=== PATIENT | male | born 1960 | race African-American/Black ===

== ENCOUNTER 2019-03-02 10:43 | Observation (INO) | payer MEDICAID, OTHER ==
[2019-03-02] MEDS ORDERED: IPRATROPIUM/ALBUTEROL 3 ML NEB INH STA (11:25)
--- NOTE | 2019-03-02 11:31 | ED Physician Documentation ---
History of Present Illness - Stated complaint Stated Complaint: SOA - Chief complaint Chief Complaint: Resp - History obtained from History obtained from: Patient, Family - History of Present Illness Timing: How many weeks ago (several) Pain level max: 0 Pain level now: 0 - Additonal information Additional information: 58-year-old male, has not seen a doctor in approximately 30 to 40 years. He states that he has been feeling short of breath for the last 3 weeks, worse with exertion and better with rest. No chest pain. Does not smoke. Has no medical problems that he is aware of. Does not take any medications. Patient states that he can only walk approximately 10 to 15 feet before he has to stop and is out of breath. Cannot make it up a flight of stairs without stopping. Review of Systems Ten Systems: 10 systems reviewed and negative Constitutional: denies: Fever, Chills Ears: denies: Ear pain Nose: denies: Rhinorrhea / runny nose, Congestion Respiratory: reports: Dyspnea. denies: Cough, Wheezing GI: denies: Nausea, Vomiting, Diarrhea Skin: denies: Rash Musculoskeletal: denies: Neck pain, Back pain Neurologic: denies: Headache PD PAST MEDICAL HISTORY - Past Medical History Past Medical History: No - Past Surgical History Past Surgical History: No - Allergies Allergies/Adverse Reactions: Allergies Allergy/AdvReac Type Severity Reaction Status Date / Time No Known Drug Allergies Allergy Verified 03/02/19 10:50 - Living Situation Living Situation: reports: With family Living Arrangement: reports: At home - Social History Does the pt smoke?: No Does the pt have substance abuse?: No - Family History Family history: reports: Non contributory PD ED PE NORMAL - Vitals Vital signs reviewed: Yes - General General: Alert and oriented X 3, No acute distress - HEENT HEENT: Moist mucous membranes - Neck Neck: Supple, no meningeal sign - Cardiac Cardiac: RRR - Respiratory Respiratory: Other (Rales bilaterally) - Abdomen Abdomen: Soft, Non tender, Non distended - Derm Derm: Warm and dry - Extremities Extremities: Other (2+ pitting edema bilateral lower extremity) - Neuro Neuro: Alert and oriented X 3 Results - Vitals Vitals: Vital Signs - 24 hr 03/02/19 03/02/19 10:47 11:36 Temperature 35 C L Heart Rate 114 H 102 H Respiratory 18 14 Rate Blood Pressure 149/128 H O2 Saturation 95 Oxygen O2 Source Room air - EKG (time done) 1054 Rate: Rate (enter#) (112) Rhythm: Sinus tachycardia [place]: Normal Intervals: Normal [place] QRS: Normal Ischemia: Non specific changes - Labs Labs: Laboratory Tests 03/02/19 03/02/19 03/02/19 11:39 11:39 11:39 WBC 5.2 RBC 5.12 Hgb 12.0 L Hct 38.5 L MCV 75.2 L MCH 23.4 L MCHC 31.2 L RDW 15.6 H Plt Count 308 MPV 9.4 Neut # (Auto) 3.5 Lymph # (Auto) 1.2 L [place] # (Auto) 0.3 Eos # (Auto) 0.1 Baso # (Auto) 0.0 Absolute Nucleated RBC 0.00 Nucleated RBC % 0.0 Sodium 135 Potassium 3.7 Chloride 101 Carbon Dioxide 25 Anion Gap 9.0 BUN 9 Creatinine 0.8 Estimated GFR (MDRD) 121 Glucose 209 H Glycated Hemoglobin Estim Average Glucose Calcium 8.8 Total Bilirubin 1.7 H AST 47 H ALT 57 Alkaline Phosphatase 89 Troponin I High Sens 58.1 H* B-Natriuretic Peptide Total Protein 6.6 L Albumin 3.6 Globulin 3.0 Albumin/Globulin Ratio 1.2 Lipase 22 03/02/19 03/02/19 11:39 11:39 WBC RBC Hgb Hct MCV MCH MCHC RDW Plt Count MPV Neut # (Auto) Lymph # (Auto) [place] # (Auto) Eos # (Auto) Baso # (Auto) Absolute Nucleated RBC Nucleated RBC % Sodium Potassium Chloride Carbon Dioxide Anion Gap BUN Creatinine Estimated GFR (MDRD) Glucose Glycated Hemoglobin 8.8 H Estim Average Glucose 206 H Calcium Total Bilirubin AST ALT Alkaline Phosphatase Troponin I High Sens B-Natriuretic Peptide 1477 H Total Protein Albumin Globulin Albumin/Globulin Ratio Lipase - Rads (name of study) CXR Radiology: Prelim report reviewed, EMP read contemporaneously, See rad report (. Heterogeneous mid and lower lung opacities could represent atypical infection. Recommend follow-up to resolution. 2. Possible airways disease ) PD MEDICAL DECISION MAKING - ED course Complexity details: reviewed results, re-evaluated patient, considered differential, d/w patient, d/w family, d/w mainframe consultant ED course: 58-year-old male presents to the emergency department with dyspnea for the past several weeks, slowly increasing. Now unable to walk more than approximately 10 to 15 feet without stopping because he is short of breath. Appears to have new onset congestive heart failure. Given Lasix here. Also appears to have a new onset diabetes. As patient is having significant dyspnea, will admit for diuresis and further evaluation. He does not have a primary care doctor. Discussed the case with Dr. Barba, hospitalist who accepts. This document was made in part using voice recognition software. While efforts are made to proofread this document, sound alike and grammatical errors may occur. Departure - Departure Disposition: [facility] DC/Xfer Clinical Impression: New onset of congestive heart failure, New onset type 2 diabetes mellitus Pulmonary edema Qualifiers: Chronicity: acute Qualified Code(s): J81.0 - Acute pulmonary edema Condition: Stable Discharge Date/Time: 03/02/19 13:42
--- NOTE | 2019-03-02 11:34 | XRAY Report ---
Reason: SOA/tachycardia Procedure Date: 03/02/2019 Accession Number: [id number] / [id number] Procedure: XR - Chest 2 View X-Ray CPT Code: 58730 Final Report FULL RESULT: EXAM: CHEST RADIOGRAPHY EXAM DATE: 03/02/2019 11:08 AM. CLINICAL HISTORY: SOA/tachycardia. COMPARISON: None. TECHNIQUE: 2 views. FINDINGS: Lungs/Pleura: Increased lung markings. Heterogeneous bilateral mid and lower lung opacities. Mediastinum: Heart and mediastinal contours are unremarkable. Other: None. IMPRESSION: 1. Heterogeneous mid and lower lung opacities could represent atypical infection. Recommend follow-up to resolution. 2. Possible airways disease RADIA
[2019-03-02 11:44] LABS: BASOPHILS % (AUTO) 0.8 %; EOSINOPHILS # (AUTO) 0.1 10^3/uL (0.0-0.7); EOSINOPHILS % (AUTO) 1.7 %; LYMPHOCYTES # (AUTO) 1.2 10^3/uL (1.5-3.5); LYMPHOCYTES % (AUTO) 23.9 %; MEAN CORPUSCULAR HEMOGLOBIN 23.4 pg (27.0-31.0); MEAN CORPUSCULAR HGB CONC 31.2 g/dL (32.0-36.0); MEAN CORPUSCULAR VOLUME 75.2 fL (80.0-94.0); MEAN PLATELET VOLUME 9.4 fL (7.4-11.4); MONOCYTES # (AUTO) 0.3 10^3/uL (0.0-1.0); NEUTROPHILS # (AUTO) 3.5 10^3/uL (1.5-6.6); NEUTROPHILS % (AUTO) 67.4 %; PLT - PLATELET COUNT 308 10^3/uL (130-450); RED BLOOD COUNT 5.12 10^6/uL (4.70-6.10); RED CELL DISTRIBUTION WIDTH 15.6 % (12.0-15.0); WHITE BLOOD COUNT 5.2 x10^3/uL (4.8-10.8)
[2019-03-02 11:58] LABS: ALBUMIN 3.6 g/dL (3.2-5.5); ALBUMIN/GLOBULIN RATIO 1.2 (1.0-2.2); BILIRUBIN,TOTAL 1.7 mg/dL (0.2-1.0); CALCIUM 8.8 mg/dL (8.5-10.3); CREATININE 0.8 mg/dL (0.6-1.2); TOTAL PROTEIN 6.6 g/dL (6.7-8.2)
[2019-03-02] MEDS ORDERED: FUROSEMIDE 40 MG/4 ML VIAL IVP STA (12:08)
[2019-03-02 12:31] LABS: HB2 TOTAL 12.2 g/dL; HEMOGLOBIN A1C 0.88 g/dL; HEMOGLOBIN A1C % 8.8 % (4.6-6.2)
[2019-03-02] MEDS ORDERED: ACETAMINOPHEN 325 MG TABLET PO PRN (13:00)
--- NOTE | 2019-03-02 14:04 | HISTORY & PHYSICAL EXAMINATION ---
Chief Complaint - Chief Complaint Chief Complaint: Shortness of breath History of Present Illness - Admitted From Admitted From:: Home - History Obtained From Records Reviewed: Yes History obtained from: Patient, ER Physician - History of Present Illness HPI Comment/Other: This is a 58-year-old male with no known past medical history who has not seen a physician in approximately 30 years who presents complaining of worsening shortness of breath with exertion for the past 3 weeks.He states his breathing has progressively declined and he is now barely able to ambulate to his bathroom. He also reports orthopnea that he has had difficulty sleeping at night. He does not recall having lower extremity swelling. He reports no chest pain but does endorse palpitations and a cough. He has had no fever, abdominal pain, nausea, vomiting. He does not smoke and only drinks alcohol rarely. He does have a history of drug use and recently used cocaine about 1 week ago. He reports using approximately every month. Report reports a remote history of meth use. He also smokes marijuana but denies the use of heroin. He reports a family history of hypertension, diabetes, and congestive heart failure. He came to the hospital today because his sister kept on pushing him to seek medical attention.He does not have a primary care physician. In the emergency department, he was found to be tachycardic, tachypneic but he was not hypoxic. Chest x-ray revealed bilateral opacities.He was found to have an A1c of 8.8%, troponin of 58.1, and a BNP of 1477. Given these findings, medicine was consulted for admission. History - Past Medical History Cardiovascular: reports: None Respiratory: reports: None Neuro: reports: None Endocrine/Autoimmune: reports: None - Family & Social History Family History Comment/Other: Reports family history of hypertension, diabetes. His mother from congestive heart failure. Living arrangement: At home Living Situation: With family Social History Notes: He is currently not employed but was previous he working in [employer]. He does not smoke. Reports social use of alcohol. He does use cocaine with most recent use being 1 week ago. He also uses marijuana. Reports a remote history of meth use. Denies heroin use. - POLST Patient has POLST: No Meds/Allgy - Home Medications Home Medications: Ambulatory Orders Medication Instructions Recorded Confirmed No Known Home Medications 03/02/19 03/02/19 - Allergies Allergies/Adverse Reactions: Allergies Allergy/AdvReac Type Severity Reaction Status Date / Time No Known Drug Allergies Allergy Verified 03/02/19 10:50 Review of Systems - Constitutional Constitutional: denies: Fatigue, Fever, Chills, Weakness, Poor appetite - Cardiovascular Cariovascular: reports: Palpitations, Exertional dyspnea, Decr. exercise to lerance. denies: Chest pain, Edema - Respiratory Respiratory: reports: Cough, Orthopnea, SOB with exertion. denies: SOB at rest - Gastrointestinal Gastrointestinal: denies: Abdominal pain, Abdominal distention, Nausea, Vomiting - Genitourinary Genitourinary: denies: Dysuria, Frequency, Urgency - Musculoskeletal Musculoskeletal: denies: Muscle weakness - Neurological Neurological: denies: General weakness, Focal weakness, Numbness - All Other Systems All Other Systems: reports: Reviewed and negative Prior Level of Functionality: Independent with ADL's. Exam - Vital Signs Reviewed Vital Signs: Yes Vital Signs: Vital Signs x48h Temp Pulse Resp BP Pulse Ox 03/02/19 11:36 102 H 14 03/02/19 10:47 35 C L 114 H 18 149/128 H 95 - Physical Exam General Appearance: positive: No acute distress, Alert Eyes Bilateral: positive: Normal inspection ENT: positive: ENT inspection nml Neck: positive: Nml inspection Respiratory: positive: Rales, Other (Tachypneic with diminished breath sounds. No wheezes or rhonchi.) Cardiovascular: positive: No murmur, Tachycardia. negative: Systolic murmur, Diastolic murmur Abdomen: positive: Non-tender, No distention. negative: Tenderness, Guarding, Rebound, Hepatomegaly, Splenomegaly Skin: positive: No rash, Warm, Dry Extremities: positive: Full ROM, Pedal edema (+1 pitting edema in bilateral lower extremities.) Neurologic/Psychiatric: positive: Oriented x3, Motor nml. negative: Disoriented to person, Disoriented to place, Disoriented to time, Weakness Conclusion/Plan - Problem List (1) Pulmonary edema Conclusion/Plan: His presentation given his x-ray findings, elevated BNP are concerning for new onset heart failure. He does have risk factors including diabetes for possible heart disease. He may have also had poorly controlled hypertension leading to heart failure. His drug use may also cause heart failure. We will obtain an echocardiogram. We will treat him with IV Lasix. Recheck a BNP in the morning.If he does have new onset heart failure, he will need appropriate goal- directed therapy and outpatient cardiology follow-up. Qualifiers: Chronicity: acute Qualified Code(s): J81.0 - Acute pulmonary edema (2) Elevated troponin Conclusion/Plan: He does not have chest pain and his EKG does not show acute ischemia. Suspect his elevated troponin is likely secondary to heart failure. We will continue to trend troponin. (3) Hypertension Conclusion/Plan: His blood pressure is elevated and he likely has hypertension. We will start him on antihypertensives. If he does have heart failure, will start carvedilol and lisinopril. (4) New onset type 2 diabetes mellitus Conclusion/Plan: This is a new diagnosis for him and his A1c is 8.8.%. Will start him on carb controlled diet and sliding scale. Will add Lantus if required while inpatient. Likely discharge on Metformin. - Lab Results Fish Bones: 03/02/19 11:39 03/02/19 11:39 - Diagnostic Imaging Results Diagnostic Imaging Results: positive: Final report reviewed, Read independently Diagnostic Imaging Results Comments: His x-ray is suggestive of pulmonary vascular congestion. Less likely pneumonia. - EKG Results EKG Interpreted Independently: Yes EKG Findings: His EKG reveals sinus tachycardia with nonspecific ST segment changes. No obvious signs of ischemia. QTC is prolonged at 490. Core Measures - Anticipated LOS I expect patient to be DC'd or transferred within 96 hours.: Yes - Issues Hospital Issues and Management Plan: Pulmonary edema and exertional dyspnea concerning for new onset heart failure. Will obtain echocardiogram and diurese him with IV Lasix. - DVT/VTE - Prophylaxis VTE/DVT Device ordered at admit?: Yes VTE/DVT Prophylaxis med ordered at admit?: Yes
[2019-03-02] MEDS: INSULIN ASPART 300 UNIT/3 ML PEN SUBQ SCH ×2 (17:21→21:45)
[2019-03-02] MEDS: FUROSEMIDE 40 MG/4 ML VIAL IVP SCH (17:22)
[2019-03-02] MEDS: SODIUM CHLORIDE FLUSH 0.9% 10 ML SYRINGE IVP SCH ×2 (17:22→23:58)
[2019-03-02] MEDS: carvediloL 3.125 MG TABLET PO SCH (21:46)
[2019-03-02] MEDS: HEPARIN 5,000 UNIT/ML VIAL SUBQ SCH (21:47)
[2019-03-03] MEDS: SODIUM CHLORIDE FLUSH 0.9% 10 ML SYRINGE IVP PRN ×2 (05:24→14:42)
[2019-03-03] MEDS: FUROSEMIDE 40 MG/4 ML VIAL IVP SCH ×2 (05:24→14:42)
[2019-03-03 05:26] LABS: BASOPHILS % (AUTO) 0.9 %; EOSINOPHILS # (AUTO) 0.2 10^3/uL (0.0-0.7); EOSINOPHILS % (AUTO) 3.8 %; HGB - HEMOGLOBIN 11.8 g/dL (14.0-18.0); LYMPHOCYTES # (AUTO) 1.7 10^3/uL (1.5-3.5); LYMPHOCYTES % (AUTO) 36.4 %; MEAN CORPUSCULAR HEMOGLOBIN 23.8 pg (27.0-31.0); MEAN CORPUSCULAR HGB CONC 31.7 g/dL (32.0-36.0); MEAN PLATELET VOLUME 9.6 fL (7.4-11.4); MONOCYTES # (AUTO) 0.4 10^3/uL (0.0-1.0); MONOCYTES % (AUTO) 8.4 %; NEUTROPHILS # (AUTO) 2.3 10^3/uL (1.5-6.6); NEUTROPHILS % (AUTO) 50.5 %; PLT - PLATELET COUNT 309 10^3/uL (130-450); RED BLOOD COUNT 4.96 10^6/uL (4.70-6.10); RED CELL DISTRIBUTION WIDTH 15.5 % (12.0-15.0); WHITE BLOOD COUNT 4.5 x10^3/uL (4.8-10.8)
[2019-03-03 05:46] LABS: BUN - BLOOD UREA NITROGEN 11 mg/dL (6-20); CALCIUM 8.5 mg/dL (8.5-10.3); CARBON DIOXIDE - CO2 29 mmol/L (21-32); CHLORIDE 99 mmol/L (101-111); CHOL/HDL RATIO 4.5 (<5.0); CHOLESTEROL 136 mg/dL; CREATININE 0.8 mg/dL (0.6-1.2); GFR - MDRD 121 (>89); GLUCOSE 135 mg/dL (70-100); HDL CHOLESTEROL 30 mg/dL; LDL CHOLESTEROL,CALCULATED 94 mg/dL; LDL/HDL RATIO 3.1 (<3.6); SODIUM 138 mmol/L (135-145); VLDL CHOLESTEROL 12 mg/dL
[2019-03-03] MEDS: INSULIN ASPART 300 UNIT/3 ML PEN SUBQ SCH ×4 (08:02→20:34)
[2019-03-03] MEDS ORDERED: POTASSIUM CHLORIDE 20 MEQ TABLET PO ONE (08:21)
[2019-03-03] MEDS ORDERED: LISINOPRIL 5 MG TABLET PO SCH (09:00)
[2019-03-03] MEDS ORDERED: SPIRONOLACTONE 25 MG TABLET PO SCH (09:00)
[2019-03-03] MEDS: metFORMIN 500 MG TABLET PO SCH ×2 (10:10→16:55)
[2019-03-03] MEDS: ASPIRIN EC 81 MG TABLET PO SCH (10:10)
[2019-03-03] MEDS: HEPARIN 5,000 UNIT/ML VIAL SUBQ SCH ×2 (10:11→20:36)
[2019-03-03] MEDS: SODIUM CHLORIDE FLUSH 0.9% 10 ML SYRINGE IVP SCH ×3 (10:11→23:58)
[2019-03-03] MEDS: carvediloL 3.125 MG TABLET PO SCH ×2 (10:11→20:40)
--- NOTE | 2019-03-03 14:18 | Ultrasound Report ---
Reason: L great toe is black, eval for ischemia/PVD Procedure Date: 03/03/2019 Accession Number: [id number] / [id number] Procedure: US - Duplex Lwr Ext Arterial LT CPT Code: Final Report FULL RESULT: EXAM: LEFT LOWER EXTREMITY ARTERIAL DOPPLER ULTRASOUND EXAM DATE: 03/03/2019 01:53 PM. CLINICAL HISTORY: Left great toe is black, evaluate for ischemia/PVD. COMPARISON: None. TECHNIQUE: Real-time sonographic vascular imaging was performed by the office services coordinator, utilizing color-flow, Doppler flow, and spectral analysis. Multiple software support representative static images were saved for review. FINDINGS: Normal triphasic waveforms are seen throughout the patent left lower extremity arterial vasculature with sampled stations and respective velocities in centimeters per second as described below. Left Lower Extremity: PLUG DRILL OPERATOR: PSV 51 cm/sec. PSFA: PSV 48 cm/sec. MSFA: PSV 59 cm/sec. DSFA: PSV 54 cm/sec. PFA: PSV 40 cm/sec. POP: PSV 48 cm/sec. ERIK: PSV 76 cm/sec. HOT DIP PLATING SUPERVISOR: PSV 83 cm/sec. CHINTAN: PSV 43 cm/sec. DPA: PSV 71 cm/sec. IMPRESSION: Normal left lower extremity arteries as described. Recommendation: Vascular etiology of black toes in the setting of normal lower extremity vascular system is most commonly associated with thromboembolic disease. RADIA
--- NOTE | 2019-03-03 15:32 | PROVIDER PROGRESS NOTE ---
Assessment/Plan - Problem List (1) New onset of congestive heart failure Assessment/Plan: The Echo showed LVEF 20-30% with global hypokainesis and moderate pulm HTN. He is in (-)2L fluid balance today and less orthopneic, he reported. Continue Coreg and Lisinopril, started yesterday. Continue iv diuretic for 1 more day, change to po Lasix tomorrow. Will also start Aldactone now. Will add a daily baby ASA, for possible ischemic cardiomyopathy. Given his young age, and risks for vascular disease, will try to get transferred for a cor angio. The angio procedure was explained to the patient, he is agree able. (2) New onset type 2 diabetes mellitus Assessment/Plan: He reports that DM runs in the family. Will change to a cc diet, low sodium. continue ss Insulin coverage. Start metformin. Will request Land Surveying Survey Worker Consult, for DM and CHF teaching. (3) Hypertension Assessment/Plan: He may have had lonstanding HTN that was uncontrolled, leading to cardiomyopathy. The new CHF meds are now controlling his BP. (4) Hypokalemia Assessment/Plan: Likely related to diuresis. Replace orally. Follow BMP and Mg daily. (5) Black toe Assessment/Plan: The RN reported this today. He says it turned black about 1 week ago, was not painful, he cut the nail down so it wouldn't snag. Will assess for ischemia with Duplex Doppler of L leg. Add daily anti-platelet agent. - Current Meds Current Meds: Current Medications Generic Name Dose Route Start Last Admin Trade Name Yogesh PRN Reason Stop Dose Admin Aspirin 81 mg 03/03/19 09:00 03/03/19 10:10 Ecotrin PO 81 mg DAILY SHANNAN Administration Carvedilol 6.25 mg 03/02/19 21:00 03/03/19 10:11 Coreg PO 6.25 mg BID SHANNAN Administration Furosemide 40 mg 03/02/19 18:00 03/03/19 14:42 Lasix Inj 40 Mg Vial IVP 40 mg BIDDIURETIC SHANNAN Administration Heparin Sodium (Porcine) 5,000 unit 03/02/19 21:00 03/03/19 10:11 SUBQ 5,000 unit BID SHANNAN Administration Insulin Aspart 1 - 9 unit 03/02/19 17:00 03/03/19 12:34 Novolog SUBQ 5 unit 0800,1200,1700,2100 SHANNAN Administration Protocol Lisinopril 10 mg 03/03/19 09:00 03/03/19 10:09 Zestril PO 10 mg DAILY SHANNAN Administration Metformin HCl 500 mg 03/03/19 09:00 03/03/19 10:10 Glucophage PO 500 mg BIDWM SHANNAN Administration Sodium Chloride 10 ml 03/02/19 13:00 03/03/19 14:42 Normal Saline Flush 0.9% IVP 10 ml PRN PRN Administration NEEDED PER PROVIDER ORDERS Sodium Chloride 10 ml 03/02/19 17:00 03/03/19 10:11 Normal Saline Flush 0.9% IVP 10 ml 0100,0900,1700 SHANNAN Administration Spironolactone 25 mg 03/03/19 09:00 03/03/19 10:09 Aldactone PO 25 mg DAILY SHANNAN Administration - Lab Result Fish Bone Diagrams: 03/03/19 05:02 03/03/19 05:02 - Additional Planning My Orders: My Active Orders 03/03/19 08:18 Nutrition Consult [CONS] Routine 03/03/19 09:00 Aspirin EC [Ecotrin] 81 mg PO DAILY Spironolactone [Aldactone] 25 mg PO DAILY metFORMIN [Glucophage] 500 mg PO BIDWM 03/03/19 Dinner Carb-controlled Diet [DIET] 03/04/19 05:00 FOLATE [IAI] DAILYLAB IRON TIBC PANEL [CHEM] DAILYLAB VITAMIN B12 [IAI] DAILYLAB Subjective - Subjective Patient Reports: Feeling Better, Resting Comfortably Nursing Reports: Other (Has questions about DM and CHF) Objective Vital Signs: Vital Signs - 24 hr 03/02/19 03/02/19 03/02/19 16:44 17:00 21:00 Temperature 35.0 C L 36.8 C 36.9 C Heart Rate 112 H Heart Rate [ 105 H 119 H Brachial] Heart Rate [ Monitoring electrodes] Respiratory 20 20 22 Rate Blood Pressure 161/105 H 151/90 H [Right Brachial artery] O2 Saturation 97 98 96 03/02/19 03/02/19 03/03/19 21:43 23:59 01:19 Temperature 36.8 C Heart Rate Heart Rate [ 100 99 Brachial] Heart Rate [ 107 H Monitoring electrodes] Respiratory 16 Rate Blood Pressure 151/84 H 134/101 H 132/92 H [Right Brachial artery] O2 Saturation 97 03/03/19 03/03/19 03/03/19 02:52 07:57 13:00 Temperature 37.0 C 36.8 C 36.8 C Heart Rate Heart Rate [ 97 Brachial] Heart Rate [ 97 101 H Monitoring electrodes] Respiratory 16 16 16 Rate Blood Pressure 128/82 H 144/97 H 108/65 [Right Brachial artery] O2 Saturation 94 97 96 Oxygen O2 Source Room air I&O (Last 24 Hrs): Intake and Output Totals x24h 03/01/19 03/02/19 03/03/19 23:59 23:59 23:59 Intake Total 710 1680 Output Total 2515 1350 Balance -1805 330 General: Alert, Oriented x3 HEENT: Mucous membr. moist/pink Neck: Supple Neuro: Non Focal Cardiovascular: Regular rate, No murmurs Respiratory: No respiratory distress, Rales, Other (L base rales) Abdomen: Normal bowel sounds, Soft Extremities: Other (Trace ankle edema, L toe nailbed is black) - Results Results: Laboratory Results WBC 4.5 x10^3/uL (4.8-10.8) L 03/03/19 05:02 RBC 4.96 10^6/uL (4.70-6.10) 03/03/19 05:02 Hgb 11.8 g/dL (14.0-18.0) L 03/03/19 05:02 Hct 37.2 % (42.0-52.0) L 03/03/19 05:02 MCV 75.0 fL (80.0-94.0) L 03/03/19 05:02 MCH 23.8 pg (27.0-31.0) L 03/03/19 05:02 MCHC 31.7 g/dL (32.0-36.0) L 03/03/19 05:02 RDW 15.5 % (12.0-15.0) H 03/03/19 05:02 Plt Count 309 10^3/uL (130-450) 03/03/19 05:02 MPV 9.6 fL (7.4-11.4) 03/03/19 05:02 Neut # (Auto) 2.3 10^3/uL (1.5-6.6) 03/03/19 05:02 Lymph # (Auto) 1.7 10^3/uL (1.5-3.5) 03/03/19 05:02 [place] # (Auto) 0.4 10^3/uL (0.0-1.0) 03/03/19 05:02 Eos # (Auto) 0.2 10^3/uL (0.0-0.7) 03/03/19 05:02 Baso # (Auto) 0.0 10^3/uL (0.0-0.1) 03/03/19 05:02 Absolute Nucleated RBC 0.00 x10^3/uL 03/03/19 05:02 Nucleated RBC % 0.0 /100WBC 03/03/19 05:02 Sodium 138 mmol/L (135-145) 03/03/19 05:02 Potassium 3.3 mmol/L (3.5-5.0) L 03/03/19 05:02 Chloride 99 mmol/L (101-111) L 03/03/19 05:02 Carbon Dioxide 29 mmol/L (21-32) 03/03/19 05:02 Anion Gap 10.0 (6-13) 03/03/19 05:02 BUN 11 mg/dL (6-20) 03/03/19 05:02 Creatinine 0.8 mg/dL (0.6-1.2) 03/03/19 05:02 Estimated GFR (MDRD) 121 (>89) 03/03/19 05:02 Glucose 135 mg/dL (70-100) H 03/03/19 05:02 POC Whole Bld Glucose 274 mg/dL (70 - 100) H 03/03/19 11:13 Glycated Hemoglobin 8.8 % (4.6-6.2) H 03/02/19 11:39 Estim Average Glucose 206 (70-100) H 03/02/19 11:39 Calcium 8.5 mg/dL (8.5-10.3) 03/03/19 05:02 Total Bilirubin 1.7 mg/dL (0.2-1.0) H 03/02/19 11:39 AST 47 IU/L (10-42) H 03/02/19 11:39 ALT 57 IU/L (10-60) 03/02/19 11:39 Alkaline Phosphatase 89 IU/L (42-121) 03/02/19 11:39 Troponin I High Sens 56.0 ng/L (2.3-19.7) H* 03/02/19 13:25 B-Natriuretic Peptide 1284 pg/mL (5-100) H 03/03/19 05:02 Total Protein 6.6 g/dL (6.7-8.2) L 03/02/19 11:39 Albumin 3.6 g/dL (3.2-5.5) 03/02/19 11:39 Globulin 3.0 g/dL (2.1-4.2) 03/02/19 11:39 Albumin/Globulin Ratio 1.2 (1.0-2.2) 03/02/19 11:39 Triglycerides 62 mg/dL (-149) 03/03/19 05:02 Cholesterol 136 mg/dL (-199) 03/03/19 05:02 LDL Cholesterol, Calc 94 mg/dL (-129) 03/03/19 05:02 VLDL Cholesterol 12 mg/dL 03/03/19 05:02 HDL Cholesterol 30 mg/dL (60-) L 03/03/19 05:02 LDL/HDL Ratio 3.1 (<3.6) 03/03/19 05:02 Cholesterol/HDL Ratio 4.5 (<5.0) 03/03/19 05:02 Lipase 22 U/L (22-51) 03/02/19 11:39
[2019-03-04 05:21] LABS: BASOPHILS % (AUTO) 0.7 %; EOSINOPHILS # (AUTO) 0.2 10^3/uL (0.0-0.7); EOSINOPHILS % (AUTO) 5.2 %; HGB - HEMOGLOBIN 11.9 g/dL (14.0-18.0); LYMPHOCYTES # (AUTO) 1.9 10^3/uL (1.5-3.5); LYMPHOCYTES % (AUTO) 43.5 %; MEAN CORPUSCULAR HEMOGLOBIN 23.4 pg (27.0-31.0); MEAN CORPUSCULAR HGB CONC 31.1 g/dL (32.0-36.0); MEAN CORPUSCULAR VOLUME 75.4 fL (80.0-94.0); MEAN PLATELET VOLUME 9.7 fL (7.4-11.4); MONOCYTES # (AUTO) 0.3 10^3/uL (0.0-1.0); NEUTROPHILS # (AUTO) 1.9 10^3/uL (1.5-6.6); NEUTROPHILS % (AUTO) 43.4 %; PLT - PLATELET COUNT 325 10^3/uL (130-450); RED BLOOD COUNT 5.08 10^6/uL (4.70-6.10); RED CELL DISTRIBUTION WIDTH 15.3 % (12.0-15.0); WHITE BLOOD COUNT 4.5 x10^3/uL (4.8-10.8)
[2019-03-04 05:42] LABS: CALCIUM 8.2 mg/dL (8.5-10.3); CREATININE 1.1 mg/dL (0.6-1.2); MAGNESIUM 1.5 mg/dL (1.7-2.8)
[2019-03-04] MEDS: FUROSEMIDE 40 MG/4 ML VIAL IVP SCH (05:52)
[2019-03-04] MEDS: SODIUM CHLORIDE FLUSH 0.9% 10 ML SYRINGE IVP SCH ×2 (05:52→10:22)
[2019-03-04 06:02] LABS: FOLATE 5.73 ng/mL (5.90 - >24.8)
[2019-03-04] MEDS ORDERED: MAGNESIUM SULFATE 2 GRAM 2 GM/50 ML BAG IV SCH (08:19)
[2019-03-04] MEDS: HEPARIN 5,000 UNIT/ML VIAL SUBQ SCH (08:59)
[2019-03-04] MEDS ORDERED: LISINOPRIL 5 MG TABLET PO SCH (09:00)
[2019-03-04] MEDS ORDERED: POTASSIUM CHLORIDE 20 MEQ TABLET PO ONE (09:00)
[2019-03-04] MEDS: ASPIRIN EC 81 MG TABLET PO SCH (09:01)
[2019-03-04] MEDS: INSULIN ASPART 300 UNIT/3 ML PEN SUBQ SCH ×2 (09:03→12:06)
[2019-03-04] MEDS: metFORMIN 500 MG TABLET PO SCH (09:10)
[2019-03-04] MEDS: carvediloL 3.125 MG TABLET PO SCH (09:11)
--- NOTE | 2019-03-04 11:41 | Discharge Plan ---
Discharge Plan Problem Reviewed?: Yes Disposition: 02 Transfer Acute Care Hosp Condition: Stable Instruction Topics: Carvedilol tablets, Diabetes Type 2 No Smoking: If you smoke, Please STOP! Call for help.
--- NOTE | 2019-03-04 11:54 | DISCHARGE SUMMARY ---
Discharge Summary Admit Date: 03/02/19 Discharge Date: 03/04/19 Discharging Provider: Dr Bruna Sandoval Primary Care Provider: None, pending at [facility] Code Status: Attempt Resuscitation Condition at Discharge: Stable Discharge Disposition: 02 Transfer Acute Care Hosp Discharge Facility Name: [facility] - DIAGNOSES Admission Diagnoses: (1) Pulmonary edema (2) Elevated troponin (3) Hypertension (4) New onset type 2 diabetes mellitus Discharge Diagnoses with Status of Each Condition: See below - HPI History of Present Illness: From the admission H&P of Dr Vick Barba: This is a 58-year-old male with no known past medical history who has not seen a physician in approximately 30 years who presents complaining of worsening shortness of breath with exertion for the past 3 weeks. He states his breathing has progressively declined and he is now barely able to ambulate to his bathroom. He also reports orthopnea that he has had difficulty sleeping at night. He does not recall having lower extremity swelling but the sister noticed that. He reports no chest pain but does describe palpitations and a cough. He has had no fever, abdominal pain, nausea, vomiting. He does not smoke and only drinks alcohol rarely. He does have a history of drug use and recently used cocaine about 1 week ago. He reports using approximately once a month and also reports a remote history of meth use. He also smokes marijuana but denies the use of heroin. He reports a family history of hypertension, diabetes, and congestive heart failure. He came to the hospital today because his sister kept on pushing him to seek medical attention. He does not have a primary care physician. In the emergency department, he was found to be tachycardic at 117 in sinus rhythm, tachypneic but he was not hypoxic. Chest x-ray revealed bilateral opacities consistent with edema. He was found to have an A1c of 8.8%, troponin of 58.1, and a BNP of 1477. He was placed in Observation for evaluation and management. - HOSPITAL COURSE Hospital Course: (1) New onset of congestive heart failure The troponins were flat, the BNP improved to 1284 with diuresis started. An Echo showed LVEF 25-30% with global hypokinesis and moderate pulm HTN (PA pressure 60 mmHg). He was put on Coreg, Lisinopril, iv then po Lasix, Spironolactone and a baby aspirin daily. He became 5L (-) in fluid balance and was no longer orthopneic. Given his young age, and risks for vascular disease, plus concern to be lost to follow-up without a PCP, he was accepted in transfer to [facility], for work-up of coronary ischemia, with a probable coronary angiogram, and to establish with a Management Psychologist. (2) New onset type 2 diabetes mellitus He reports that DM runs in the family. He was started on a carb controlled diet, Metformin and sliding scale Regular Insulin coverage. He was seen in consult by the Orthopaedic Physician Assistant for DM and CHF teaching. (3) Hypertension He presented with BP of 161/105 and may have had longstanding HTN that was uncontrolled, leading to cardiomyopathy. The new CHF meds were controlling his BP without orthostasis. (4) Hypokalemia Low Potassium of 3.3 developed after diuresis and was replaced (5) Hypomagnesemia Low Mg of 1.5 developed after diuresis and was replaced (5) Black toe The RN noted this, since the patient had no complaints. He said it turned black about 1 week ago after some possible foot trauma and was not painful, he cut the nail down so it wouldn't snag. He underwent Duplex arterial Doppler of L leg, which did not show PVD. The Echo had not shown an intracardiac clot. (6) Microcytic anemia His Hgb was stable at 12 with very low MCV of 75. Serum levels of iron and folate were borderline low. - ALLERGIES Allergies/Adverse Reactions: Allergies Allergy/AdvReac Type Severity Reaction Status Date / Time No Known Drug Allergies Allergy Verified 03/02/19 10:50 - MEDICATIONS Home Medications: Ambulatory Orders Medication Instructions Recorded Confirmed No Known Home Medications 03/02/19 03/02/19 - PHYSICAL EXAM AT DISCHARGE General Appearance: positive: No acute distress, Alert Eyes Bilateral: positive: Normal inspection, EOMI ENT: positive: ENT inspection nml, No signs of dehydration Neck: positive: Nml inspection, No JVD Respiratory: positive: No respiratory distress, Breath sounds nml Cardiovascular: positive: Regular rate & rhythm, No murmur Abdomen: positive: Non-tender, No distention Skin: positive: Color nml Extremities: positive: No pedal edema Neurologic/Psychiatric: positive: Oriented x3, Other (Non-focal) - LABS Result Diagrams: 03/04/19 04:55 03/04/19 04:55 - DIAGNOSTIC IMAGING Diagnostic Imaging Results: Final report reviewed - FOLLOW UP Follow Up: The transitions RN was able to arrange for a new PCP visit at the clinic on [address] on Apr 02, 2019.
[2019-03-04] MEDS ORDERED: SPIRONOLACTONE 25 MG TABLET PO SCH (12:00)
[2019-03-04 12:44] VITALS: BP 107/72
[2019-03-04] MEDS ORDERED: carvediloL 3.125 MG TABLET PO SCH (21:00)
[2019-03-05] MEDS ORDERED: LISINOPRIL 5 MG TABLET PO SCH (09:00)
== END 2019-03-04 13:48 | disposition short-term general hospital (02) ==
LOC: ED 10:43 → MS2 13:00
PROVIDERS: ADMIT Internal Medicine; ATTEND Internal Medicine
DX: I11.0 Hypertensive heart disease with heart failure (principal); I50.9 Heart failure, unspecified; E11.9 Type 2 diabetes mellitus without complications; E87.6 Hypokalemia; E83.42 Hypomagnesemia; D50.9 Iron deficiency anemia, unspecified; R06.01 Orthopnea; I27.20 Pulmonary hypertension, unspecified; L60.8 Other nail disorders; I08.3 Combined rheumatic disorders of mitral, aortic and tricuspid valves
CPT/HCPCS: 36415; 71046; 80048; 80053; 80061; 82607; 82746; 83036; 83540; 83690; 83735; 83880; 84466; 84484; 85025; 93005; 93306; 93926; 94640; 96365; 96372; 96375; 96376; 99284; 99285; A9270; G0378; 83721

== ENCOUNTER 2019-03-25 14:28 | Outpatient (CLI) | payer MEDICAID ==
[2019-03-25 19:04] LABS: HGB - HEMOGLOBIN 13.3 g/dL (14.0-18.0); MEAN CORPUSCULAR HEMOGLOBIN 23.1 pg (27.0-31.0); MEAN CORPUSCULAR HGB CONC 29.9 g/dL (32.0-36.0); MEAN CORPUSCULAR VOLUME 77.1 fL (80.0-94.0); MEAN PLATELET VOLUME 10.7 fL (7.4-11.4); RED BLOOD COUNT 5.77 10^6/uL (4.70-6.10); RED CELL DISTRIBUTION WIDTH 15.5 % (12.0-15.0); WHITE BLOOD COUNT 4.9 x10^3/uL (4.8-10.8)
[2019-03-25 19:11] LABS: CALCIUM 8.9 mg/dL (8.5-10.3); CREATININE 0.8 mg/dL (0.6-1.2)
== END 2019-03-25 23:59 | disposition home or self-care (01) ==
LOC: LAB.N 14:28
PROVIDERS: ATTEND Family Medicine
DX: I50.9 Heart failure, unspecified (principal)
CPT/HCPCS: 36415; 80048; 83880; 85027

== ENCOUNTER 2019-04-24 15:05 | Outpatient (CLI) | payer MEDICAID ==
[2019-04-24 19:02] LABS: HGB - HEMOGLOBIN 13.2 g/dL (14.0-18.0); MEAN CORPUSCULAR HGB CONC 30.6 g/dL (32.0-36.0); MEAN CORPUSCULAR VOLUME 75.4 fL (80.0-94.0); MEAN PLATELET VOLUME 10.7 fL (7.4-11.4); RED BLOOD COUNT 5.73 10^6/uL (4.70-6.10); RED CELL DISTRIBUTION WIDTH 14.8 % (12.0-15.0)
[2019-04-24 19:32] LABS: CALCIUM 9.6 mg/dL (8.5-10.3); CREATININE 0.8 mg/dL (0.6-1.2)
== END 2019-04-24 23:59 | disposition home or self-care (01) ==
LOC: LAB.N 15:05
PROVIDERS: ATTEND Family Medicine
DX: I50.9 Heart failure, unspecified (principal)
CPT/HCPCS: 36415; 80048; 83880; 85027

== ENCOUNTER 2019-06-19 12:14 | Outpatient (CLI) | payer MEDICAID ==
[2019-06-19 19:42] LABS: CREATININE 0.9 mg/dL (0.6-1.2)
== END 2019-06-19 23:59 | disposition home or self-care (01) ==
LOC: LAB.N 12:14
PROVIDERS: ATTEND Hospitalist
DX: I50.22 Chronic systolic (congestive) heart failure (principal)
CPT/HCPCS: 36415; 80048

== ENCOUNTER 2019-07-10 11:48 | Outpatient (CLI) | payer MEDICAID ==
[2019-07-10 18:28] LABS: CALCIUM 9.5 mg/dL (8.5-10.3); CREATININE 0.9 mg/dL (0.6-1.2)
== END 2019-07-10 23:59 | disposition home or self-care (01) ==
LOC: LAB.N 11:48
PROVIDERS: ATTEND Nurse Practitioner
DX: I50.22 Chronic systolic (congestive) heart failure (principal)
CPT/HCPCS: 36415; 80048

== ENCOUNTER 2019-08-25 08:00 | Outpatient (CLI) | payer MEDICAID ==
[2019-08-25 17:51] LABS: CALCIUM 9.3 mg/dL (8.5-10.3); CREATININE 1.1 mg/dL (0.6-1.2)
== END 2019-08-25 23:59 | disposition home or self-care (01) ==
LOC: LAB.WCP 08:00
PROVIDERS: ATTEND Nurse Practitioner
DX: I42.0 Dilated cardiomyopathy (principal); I10 Essential (primary) hypertension
CPT/HCPCS: 36415; 80048

== ENCOUNTER 2020-01-01 08:00 | Outpatient (CLI) | payer MEDICAID ==
[2020-01-01 18:42] LABS: BASOPHILS % (AUTO) 0.8 %; EOSINOPHILS # (AUTO) 0.3 10^3/uL (0.0-0.7); HGB - HEMOGLOBIN 11.1 g/dL (14.0-18.0); LYMPHOCYTES # (AUTO) 1.4 10^3/uL (1.5-3.5); MEAN CORPUSCULAR HEMOGLOBIN 23.6 pg (27.0-31.0); MEAN CORPUSCULAR HGB CONC 30.7 g/dL (32.0-36.0); MEAN CORPUSCULAR VOLUME 76.9 fL (80.0-94.0); MEAN PLATELET VOLUME 10.8 fL (7.4-11.4); MONOCYTES # (AUTO) 0.3 10^3/uL (0.0-1.0); MONOCYTES % (AUTO) 5.9 %; NEUTROPHILS # (AUTO) 3.3 10^3/uL (1.5-6.6); NEUTROPHILS % (AUTO) 61.9 %; PLT - PLATELET COUNT 244 10^3/uL (130-450); RED BLOOD COUNT 4.71 10^6/uL (4.70-6.10); RED CELL DISTRIBUTION WIDTH 14.4 % (12.0-15.0); WHITE BLOOD COUNT 5.2 x10^3/uL (4.8-10.8)
[2020-01-01 19:07] LABS: ALBUMIN 4.3 g/dL (3.2-5.5); ALBUMIN/GLOBULIN RATIO 1.4 (1.0-2.2); ALKALINE PHOSPHATASE 66 IU/L (42-121); ALT ALANINE AMINOTRANSFERASE 13 IU/L (10-60); AST ASPARTATE AMINOTRANSFERASE 16 IU/L (10-42); BILIRUBIN,TOTAL 1.5 mg/dL (0.2-1.0); BUN - BLOOD UREA NITROGEN 16 mg/dL (6-20); CALCIUM 9.3 mg/dL (8.5-10.3); CARBON DIOXIDE - CO2 28 mmol/L (21-32); CHLORIDE 98 mmol/L (101-111); CHOL/HDL RATIO 2.7 (<5.0); CHOLESTEROL 90 mg/dL; CREATININE 1.2 mg/dL (0.6-1.2); CREATININE,URINE 91.6 mg/dL; GLUCOSE 170 mg/dL (70-100); HDL CHOLESTEROL 33 mg/dL; LDL CHOLESTEROL,CALCULATED 31 mg/dL; LDL/HDL RATIO 0.9 (<3.6); MICROALBUM/CREATININE RATIO,UR 2.2 ug/mg (<30.0); MICROALBUMIN,URINE 0.2 mg/dL (0-300.0); SODIUM 135 mmol/L (135-145); TOTAL PROTEIN 7.4 g/dL (6.7-8.2); VLDL CHOLESTEROL 26 mg/dL
[2020-01-01 21:16] LABS: HEMOGLOBIN A1c% 8.3 % (4.27-6.07)
== END 2020-01-01 23:59 | disposition home or self-care (01) ==
LOC: LAB.WCP 08:00
PROVIDERS: ATTEND Family Medicine
DX: I10 Essential (primary) hypertension (principal); E11.9 Type 2 diabetes mellitus without complications
CPT/HCPCS: 36415; 80053; 80061; 82043; 82570; 83036; 83721; 84443; 85025

== ENCOUNTER 2020-01-17 08:00 | Outpatient (CLI) | payer MEDICAID | END 2020-01-17 23:59 | disposition home or self-care (01) | LOC: LAB.R 08:00 | PROVIDERS: ATTEND Family Medicine | DX: D64.9 Anemia, unspecified (principal) | CPT/HCPCS: 82274 ==

== ENCOUNTER 2020-05-18 10:16 | Inpatient (IN) | payer MEDICAID ==
--- NOTE | 2020-05-18 10:35 | ED Physician Documentation ---
PD HPI NVD - Stated complaint Stated Complaint: DIZZY,NAUSEA - Chief complaint Chief Complaint: General - History obtained from History obtained from: Patient - History of Present Illness Timing - onset: How many days ago (2-3) Timing - duration: Days (2-3) Timing - details: Abrupt onset Associated symptoms: Other (He has noticed loss of appetite and nausea associated with general weakness and decreased urine output for the last 2 to 3 days. Symptoms worse today.). No: Fever, Abdominal pain, Chest pain Contributing factors: Diabetes, Other (new medication). No: Sick contact, Bad food, Recent antibiotics Improved by: No: Vomiting Worsened by: Eating Recently seen: Clinic (Started on Jardiance as a new medicine for his diabetes a week ago. Other medicines stayed the same.) Review of Systems Constitutional: denies: Fever, Chills Nose: denies: Rhinorrhea / runny nose, Congestion Throat: denies: Sore throat Cardiac: denies: Chest pain / pressure Respiratory: reports: Dyspnea. denies: Cough, Wheezing GI: reports: Nausea, Vomiting (couple of times). denies: Abdominal Pain, Diarrhea : reports: Hesitancy (decreased urine output and dark urine, per patient.). denies: Dysuria Skin: denies: Rash, Lesions Neurologic: reports: Generalized weakness. denies: Focal weakness, Numbness, Near syncope (but is feeling lightheaded without vertigo), Confused, Altered mental status, Headache Psychiatric: denies: Depressed Endocrine: denies: Weight loss PD PAST MEDICAL HISTORY - Past Medical History Cardiovascular: Congestive heart failure, Hypertension Respiratory: None Neuro: None Endocrine/Autoimmune: Type 2 diabetes - Past Surgical History Past Surgical History: No - Present Medications Home Medications: Ambulatory Orders Medication Instructions Recorded Confirmed Aspirin [Aspirin EC] 81 mg PO DAILY 05/21/19 05/18/20 Atorvastatin Calcium 40 mg PO DAILY 05/21/19 05/18/20 Carvedilol 6.25 mg PO BID 05/21/19 05/18/20 Lisinopril [Prinivil] 10 mg PO DAILY 05/21/19 05/18/20 Metformin HCl 500 mg PO BID 05/21/19 05/18/20 Spironolactone 25 mg PO DAILY 05/21/19 05/18/20 glipiZIDE [Glucotrol] 2.5 mg PO DAILY 05/21/19 05/18/20 Empagliflozin [Jardiance] 10 mg PO DAILY 05/18/20 05/18/20 Sildenafil Citrate [Sildenafil] 20 mg PO PRN PRN 05/18/20 05/18/20 - Allergies Allergies/Adverse Reactions: Allergies Allergy/AdvReac Type Severity Reaction Status Date / Time No Known Drug Allergies Allergy Verified 05/18/20 10:23 - Social History Does the pt smoke?: No Smoking Status: Never smoker Does the pt drink ETOH?: Yes Does the pt have substance abuse?: No - POLST Patient has POLST: No PD ED PE NORMAL - Vitals Vital signs reviewed: Yes - General General: Alert and oriented X 3, Well developed/nourished - HEENT HEENT: Ears normal, Pharynx benign. No: Moist mucous membranes - Neck Neck: Supple, no meningeal sign, No adenopathy - Cardiac Cardiac: RRR, No murmur - Respiratory Respiratory: Clear bilaterally - Abdomen Abdomen: Soft, Non tender, Non distended, No organomegaly, Other (mild suprapubic fullness.). No: Normal bowel sounds (decreased) - Male Male : Deferred - Rectal Rectal: Deferred - Back Back: No CVA TTP - Derm Derm: Warm and dry. No: Normal color (somewhat pale) - Extremities Extremities: Normal ROM s pain, No edema, No calf tenderness / cord - Neuro Neuro: Alert and oriented X 3, No motor deficit, Normal speech Eye Opening: Spontaneous Motor: Obeys Commands Verbal: Oriented GCS Score: 15 - Psych Psych: Normal mood Results - Vitals Vitals: Vital Signs - 24 hr 05/18/20 05/18/20 10:23 11:03 Temperature 35.9 C L 36.6 C Heart Rate 78 73 Respiratory 18 14 Rate Blood Pressure 128/75 110/75 O2 Saturation 97 100 Oxygen O2 Source Room air - Labs Labs: Laboratory Tests 05/18/20 05/18/20 05/18/20 10:40 10:40 10:41 WBC 5.8 RBC 4.93 Hgb 11.5 L Hct 37.1 L MCV 75.3 L MCH 23.3 L MCHC 31.0 L RDW 13.9 Plt Count 287 MPV 10.2 Neut # (Auto) 4.3 Lymph # (Auto) 0.9 L [place] # (Auto) 0.5 Eos # (Auto) 0.1 Baso # (Auto) 0.0 Absolute Nucleated RBC 0.00 Nucleated RBC % 0.0 Sodium 133 L Potassium 4.1 Chloride 92 L Carbon Dioxide 24 Anion Gap 17.0 H BUN 79 H Creatinine 5.6 H Estimated GFR (MDRD) 13 L Glucose 69 L POC Whole Bld Glucose 63 L Lactic Acid Calcium 8.8 Magnesium 2.2 Total Bilirubin 0.7 AST 18 ALT 16 Alkaline Phosphatase 67 Total Protein 8.0 Albumin 4.2 Globulin 3.8 Albumin/Globulin Ratio 1.1 Lipase 53 H Nasal Adenovirus (PCR) Nasal B. parapertussis DNA (PCR) Nasal Coronavir 229E PCR Nasal Coronavir HKU1 PCR Nasal Coronavir NL63 PCR Nasal Coronavir OC43 PCR Nasal Enterovir/Rhinovir PCR Nasal Influenza B PCR Nasal Influenza A PCR Nasal Parainfluen 1 PCR Nasal Parainfluen 2 PCR Nasal Parainfluen 3 PCR Nasal Parainfluen 4 PCR Nasal RSV (PCR) Nasal B.pertussis DNA PCR Nasal C.pneumoniae (PCR) Agusto Human Metapneumo PCR Nasal M.pneumoniae (PCR) Nasal SARS-CoV-2 (PCR) 05/18/20 05/18/20 05/18/20 11:20 13:10 13:10 WBC RBC Hgb Hct MCV MCH MCHC RDW Plt Count MPV Neut # (Auto) Lymph # (Auto) [place] # (Auto) Eos # (Auto) Baso # (Auto) Absolute Nucleated RBC Nucleated RBC % Sodium 132 L Potassium 4.4 Chloride 95 L Carbon Dioxide 22 Anion Gap 15.0 H BUN 75 H Creatinine 4.8 H Estimated GFR (MDRD) 15 L Glucose 106 H POC Whole Bld Glucose Lactic Acid 1.0 Calcium 8.2 L Magnesium Total Bilirubin AST ALT Alkaline Phosphatase Total Protein Albumin Globulin Albumin/Globulin Ratio Lipase Nasal Adenovirus (PCR) NOT DETECTED Nasal B. parapertussis DNA (PCR) NOT DETECTED Nasal Coronavir 229E PCR NOT DETECTED Nasal Coronavir HKU1 PCR NOT DETECTED Nasal Coronavir NL63 PCR NOT DETECTED Nasal Coronavir OC43 PCR NOT DETECTED Nasal Enterovir/Rhinovir PCR NOT DETECTED Nasal Influenza B PCR NOT DETECTED Nasal Influenza A PCR NOT DETECTED Nasal Parainfluen 1 PCR NOT DETECTED Nasal Parainfluen 2 PCR NOT DETECTED Nasal Parainfluen 3 PCR NOT DETECTED Nasal Parainfluen 4 PCR NOT DETECTED Nasal RSV (PCR) NOT DETECTED Nasal B.pertussis DNA PCR NOT DETECTED Nasal C.pneumoniae (PCR) NOT DETECTED Agusto Human Metapneumo PCR NOT DETECTED Nasal M.pneumoniae (PCR) NOT DETECTED Nasal SARS-CoV-2 (PCR) NOT DETECTED - Rads (name of study) chest xray Radiology: Prelim report reviewed (no infiltrates), See rad report PD MEDICAL DECISION MAKING - ED course Complexity details: reviewed results (The timeline is such that it sounds like his new Jardiance medicine contributed to acute renal failure compounded by his diuretics and NAYAN inhibitor and then under hydration with nausea. I presume this will be reversible with fluids and holding medicines.), re-evaluated patient (The bladder scanner initially showed 350 mils so concern for obstructive uropathy. However he did urinate over 200 mL prior to Tee placement and so this seemed reasonable output. Tee was held.), considered differential (Given nausea and general malaise with some dyspnea, consider possible viral illness including Covid versus pneumonia. Has had decreased urine output so can check a urine for potential infection. There is some fullness in the bladder so check bladder scanner.), d/w patient Departure - Departure Disposition: ED Place in Observation Clinical Impression: Acute kidney injury, Generalized weakness, Nausea Condition: Stable Record reviewed to determine appropriate education?: Yes Discharge Date/Time: 05/18/20 14:23
[2020-05-18] MEDS ORDERED: ONDANSETRON 4 MG/2 ML VIAL IVP STA (10:47)
[2020-05-18] MEDS ORDERED: SODIUM CHLORIDE 0.9% 1,000 ML IV STA ×3 (10:47→12:50)
[2020-05-18] MEDS ORDERED: DEXTROSE 10% 250 ML IV STA (10:49)
[2020-05-18 11:01] LABS: BASOPHILS % (AUTO) 0.2 %; EOSINOPHILS # (AUTO) 0.1 10^3/uL (0.0-0.7); EOSINOPHILS % (AUTO) 0.9 %; HGB - HEMOGLOBIN 11.5 g/dL (14.0-18.0); LYMPHOCYTES # (AUTO) 0.9 10^3/uL (1.5-3.5); LYMPHOCYTES % (AUTO) 15.9 %; MEAN CORPUSCULAR HEMOGLOBIN 23.3 pg (27.0-31.0); MEAN CORPUSCULAR VOLUME 75.3 fL (80.0-94.0); MEAN PLATELET VOLUME 10.2 fL (7.4-11.4); MONOCYTES # (AUTO) 0.5 10^3/uL (0.0-1.0); MONOCYTES % (AUTO) 8.3 %; NEUTROPHILS # (AUTO) 4.3 10^3/uL (1.5-6.6); NEUTROPHILS % (AUTO) 74.4 %; PLT - PLATELET COUNT 287 10^3/uL (130-450); RED BLOOD COUNT 4.93 10^6/uL (4.70-6.10); RED CELL DISTRIBUTION WIDTH 13.9 % (12.0-15.0); WHITE BLOOD COUNT 5.8 x10^3/uL (4.8-10.8)
--- NOTE | 2020-05-18 11:09 | XRAY Report ---
PROCEDURE: Chest 1 View X-Ray INDICATIONS: cough and feverish TECHNIQUE: One view of the chest was acquired. COMPARISON: 03/02/2019 FINDINGS: Surgical changes and devices: None. Lungs and pleura: No pleural effusions or pneumothorax. Lungs are clear. Mediastinum: Mediastinal contours appear normal. Heart size is normal. Bones and chest wall: No suspicious bony lesions. Overlying soft tissues appear unremarkable. IMPRESSION: No acute cardiopulmonary pathology. Reviewed by: Francesco Milan MD on 05/18/2020 10:08 AM [facility] Approved by: Francesco Milan MD on 05/18/2020 10:08 AM [facility] Station ID: [id number]
[2020-05-18 11:13] LABS: ALBUMIN 4.2 g/dL (3.2-5.5); ALBUMIN/GLOBULIN RATIO 1.1 (1.0-2.2); BILIRUBIN,TOTAL 0.7 mg/dL (0.2-1.0); CALCIUM 8.8 mg/dL (8.5-10.3); CREATININE 5.6 mg/dL (0.6-1.2); MAGNESIUM 2.2 mg/dL (1.7-2.8)
[2020-05-18 12:24] LABS: C. PNEUMONIAE- RESP PCR PANEL NOT DETECTED
[2020-05-18] MEDS ORDERED: LIDOCAINE 2% URO-JET 5 ML SYRINGE UR STA (13:06)
[2020-05-18 13:29] LABS: CALCIUM 8.2 mg/dL (8.5-10.3); CREATININE 4.8 mg/dL (0.6-1.2)
[2020-05-18] MEDS ORDERED: oxyCODONE 5 MG TABLET PO PRN (13:56)
[2020-05-18] MEDS ORDERED: ACETAMINOPHEN 325 MG TABLET PO PRN (13:56)
[2020-05-18] MEDS ORDERED: ONDANSETRON ODT 4 MG TABLET TL PRN (13:56)
[2020-05-18] MEDS ORDERED: ONDANSETRON 4 MG/2 ML VIAL IVP PRN (13:56)
[2020-05-18] MEDS ORDERED: SODIUM CHLORIDE FLUSH 0.9% 10 ML SYRINGE IVP PRN (13:56)
[2020-05-18] MEDS ORDERED: PROCHLORPERAZINE 10 MG/2 ML VIAL IVP PRN (13:56)
[2020-05-18] MEDS: LACTATED RINGERS 1,000 ML IV SCH ×2 (15:48→21:05)
--- NOTE | 2020-05-18 16:18 | HISTORY & PHYSICAL EXAMINATION ---
Chief Complaint - Chief Complaint Chief Complaint: nausea and vomiting History of Present Illness - Admitted From Admitted From:: home - History Obtained From Records Reviewed: [facility] History obtained from: Patient and chart review - History of Present Illness HPI Comment/Other: 59 year old male diagnosed with DM2 in February 2019 seen in the ED for 3 days of nausea and vomiting. He denies recent sick contacts or change in diet. Denies fevers, chills, shortness of breath or fatigue. Reports he was started on a new diabetes medication, Jardiance, by his PCP approximately 2 weeks ago (in addition to his previous medications which include Glipizide and Metformin). He is supposed to be checking his blood sugars daily but has not been doing so. His last A1C was 8.3% December 2019 and he is trying to maintain a carbohydrate managed diet. He takes his medications as prescribed. In addition to noting new n/v over the last 3 days, he has had decreased appetite, increased thirst (drinking multiple bottles of water a day), and decreased urine output. He was found to have elevated creatinine to 5.6 in the ED, up from 1.2 in December 2019. Additional labs included a glucose of 69 and lactic acid 1.0. He was admitted for acute kidney injury related to dehydration 2/2 Jardiance and started on IV fluid replacement. In the ED he received a fluid bolus with good effect on the creatinine, which decreased to 4.8, and he was able to urinate appropriately. Regarding diabetic complications, he has blurry vision in the right eye as well as cranial mononeuropathy III. His last eye exam was 2 months ago and he was instructed to see a retinal specialist but has not been able to do so yet. He has occasional numbness and tingling in his hands and feet. No foot ulcers noted on physical exam. Additionally, Pt has a history of chronic systolic heart failure with dilated cardiomyopathy diagnosed in 2018 at the time he was diagnosed with DM2. At that time he presented with 3 weeks SOB and intermittent chest pain after having rec ently used cocaine. Also with a remote hx of methamphetamines and heroin. His troponins were found to be in the 50s and flat. An echo showed EF 25-30%. He had pulmonary hypertension with a PA pressure of 60mmHg, with stress test negative for reversible defects. His telemetry showed a 10 beat run of V tach. His admit weight at that time was 260 pounds, discharge weight of 196 pounds. He has been following up regularly with Cardiology, and in June 2019 was started on a 7 day Zio patch. He takes Carvedilol, Lisinopril and Lasix. A repeat echo in September 2019 revealed LVEF 55%. He denies current chest pain, SOB at rest or on exertion. Remaining ROS negative. History - Past Medical History Cardiovascular: reports: Congestive heart failure (September 2019 LVEF 55%), Hypertension, [place] Respiratory: reports: None Neuro: reports: None, Peripheral neuropathy Endocrine/Autoimmune: reports: Type 2 diabetes (A1C 8.3% December 2019) GI: reports: None : reports: None, Nocturia HEENT: reports: None, Chronic vision loss (Right eye blurry, likely retinopathy) Psych: reports: None Musculoskeletal: reports: None Derm: reports: None MRSA Hx?: No - Family & Social History Family History Comment/Other: Reports family history of hypertension, diabetes. His mother from congestive heart failure. He has 7 brothers and 7 sisters but is not sure of their medical history. Living arrangement: At home Living Situation: With family (lives with his sister) Social History Notes: He is currently not employed but was previous he working in [employer]. He does not smoke. Reports social use of alcohol, very rare. Remote hx of cocaine and meth. Denies heroin use. - Substance History Use: Uses substance without health or social issues: NONE Abuse: Recurrent use of substance despite neg consequences: NONE Dependence: Experiences withdrawal or developed tolerances: NONE - POLST Patient has POLST: No Meds/Allgy - Home Medications Home Medications: Ambulatory Orders Medication Instructions Recorded Confirmed Aspirin [Aspirin EC] 81 mg PO DAILY 05/21/19 05/18/20 Atorvastatin Calcium 40 mg PO DAILY 05/21/19 05/18/20 Carvedilol 6.25 mg PO BID 05/21/19 05/18/20 Lisinopril [Prinivil] 10 mg PO DAILY 05/21/19 05/18/20 Metformin HCl 500 mg PO BID 05/21/19 05/18/20 Spironolactone 25 mg PO DAILY 05/21/19 05/18/20 glipiZIDE [Glucotrol] 2.5 mg PO DAILY 05/21/19 05/18/20 Empagliflozin [Jardiance] 10 mg PO DAILY 05/18/20 05/18/20 Furosemide [Lasix] 20 mg PO DAILY 05/18/20 Sildenafil Citrate [Sildenafil] 20 mg PO PRN PRN 05/18/20 05/18/20 - Allergies Allergies/Adverse Reactions: Allergies Allergy/AdvReac Type Severity Reaction Status Date / Time No Known Drug Allergies Allergy Verified 05/18/20 10:23 Review of Systems - Constitutional Constitutional: reports: Poor appetite. denies: Fatigue, Fever, Chills, Weakne ss - Eyes Eyes: reports: Blurred vision (R eye), Vision loss (R eye). denies: Pain, Irritation - Ears, Nose & Throat Ears, Nose & Throat: reports: Dental decay (tooth pain). denies: Ear pain, Hearing loss, Nasal discharge, Nasal congestion, Postnasal drainage - Cardiovascular Cariovascular: denies: Palpitations, Chest pain, Edema, Lightheadedness, Exertional dyspnea - Respiratory Respiratory: denies: Cough, Orthopnea, SOB at rest, SOB with exertion - Gastrointestinal Gastrointestinal: denies: Abdominal pain, Abdominal distention, Diarrhea - Genitourinary Genitourinary: reports: Nocturia. denies: Dysuria, Frequency - Musculoskeletal Musculoskeletal: denies: Muscle pain, Back pain, Limited range of motion, Muscle weakness - Integumentary Integumentary: denies: Rash, Lesions - Neurological Neurological: reports: Numbness (occasional numbness to feet and hands). denies: General weakness, Headache, Dizziness - Psychiatric Psychiatric: denies: Depression - Endocrine Endocrine: reports: Polydypsia (drinking "a lot of bottled water" over the last few days) - Hematologic/Lymphatic Hematologic/Lymphatic: denies: Anemia, Bruising, Petechiae - All Other Systems All Other Systems: reports: Reviewed and negative Prior Level of Functionality: Independent with ADLs. Drives himself to appointments as he is able to see "fine" with both eyes, just more blurry on the right. Exam - Vital Signs Reviewed Vital Signs: Yes Vital Signs: Vital Signs x48h Temp Pulse Resp BP Pulse Ox 05/18/20 15:00 36.6 C 73 14 100 05/18/20 11:03 36.6 C 73 14 110/75 100 05/18/20 10:23 35.9 C L 78 18 128/75 97 - Physical Exam General Appearance: positive: No acute distress, Alert Eyes Bilateral: positive: Normal inspection, PERRL, No lid inflammation, Conjunctivae nml. negative: EOMI (R eye with CN III weakness, does not move with EOM testing) ENT: positive: ENT inspection nml, Pharynx nml, Other (poor dentition, multiple missing teeth and cracked/chipped teeth) Neck: positive: Nml inspection, Thyroid nml Respiratory: positive: Chest non-tender, No respiratory distress, Breath sounds nml Cardiovascular: positive: Regular rate & rhythm, No murmur, No gallop Peripheral Pulses: positive: 2+ Abdomen: positive: Non-tender, No organomegaly, Nml bowel sounds, No distention Skin: positive: Color nml Extremities: positive: Non-tender, Full ROM, Nml appearance, Pedal edema Neurologic/Psychiatric: positive: Oriented x3. negative: Weakness Sepsis Event Note (H) - Evaluation Current Stage of Sepsis: Ruled out Conclusion/Plan - Problem List (1) Acute kidney injury Conclusion/Plan: Acute kidney injury due to dehydration related to non-dose related use of Jardiance, newly prescribed approximately 1-2 weeks ago. Creatinine in the ED was 5.6, decreased to 4.8 after 1L fluid bolus. Prior creatinine 1.2 in December 2019. Associated nausea, vomiting and low urine output at home, but h eart rate has stayed within normal range 70s-80s. Will stop Jardiance and continue IVF, trending creatinine to ensure he is improving. 1. IVF LR @ 200mL/hr 2. Monitor CMP daily, trend creatinine 3. Stop Jardiance 4. Monitor urine output (2) Nausea Conclusion/Plan: Associated with acute kidney injury, improved with IVF and decreasing creatinine. Continues to report poor appetite. 1. PRN antiemetics as needed 2. Treat JOSELIN, IVF (3) Congestive heart failure Conclusion/Plan: Chronic systolic heart failure with dilated cardiomyopathy, last LVEF 55% in September 2019, up from 25-30% in February 2019. Has been taking home medications appropriately. No signs of exacerbation and is so far tolerating fluid replacement. Will continue home meds and closely monitor urine output and signs of fluid overload. 113.9kg on admit today. 1. Resume home dose of Carvedilol, Lisinopril, Spironolactone and Lasix when appropriate. 2. Monitor CMP daily. 3. Monitor urine output closely. 4. Daily weights. Qualifiers: Heart failure type: systolic Heart failure chronicity: chronic Qualified Code(s): I50.22 - Chronic systolic (congestive) heart failure (4) Type 2 diabetes mellitus Conclusion/Plan: Last A1c 8.3% December 2019. Currently taking Metformin and Glipizide, recently started on Jardiance. Does not check his blood sugars daily. Reports he was supposed to come for diabetic education but has not been able to schedule a visit. Trying to maintain a carbohydrate managed diet. Complaining of blurry vision in the right eye, last eye exam was 2 months ago at which time he was instructed to see a retinal specialist in [place]. He has not been able to schedule this appointment yet. On exam his pupil appears cloudy and he should be assessed for cataracts. 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 Last, he reports intermittent neuropathy of his hands and feet but does not have a Independent Living In[employer]. No foot wounds seen on exam today. 1. Stop Jardiance. 2. Sliding Scale Insulin. 3. Carb Managed diet. 4. Diabetic education. 5. Follow up retinal specialist after discharge. 6. Check A1C. 7. Follow up PCP after discharge. Qualifiers: Diabetes mellitus penitentiary insulin use: without termite treater use Diabetes mellitus complication status: with ophthalmic complications Diabetes mellitus complication detail: with diabetic retinopathy Diabetic retinopathy severity: with unspecified retinopathy severity Diabetes mellitus macular edema: without macular edema Laterality: right Qualified Code(s): E11.319 - Type 2 diabetes mellitus with unspecified diabetic retinopathy without macular edema (5) Poor dentition Conclusion/Plan: Poor dentition, likely related to previous drug use. Missing multiple teeth, remaining front teeth are cracked. Does not have a dentist that he sees regularly, feels embarrassed about the appearance. Complaining of front tooth pain, dull ache and not new. No overt signs of tooth infection noted. 1. Follow up with dentist after discharge. 2. Social work referral for dentistry. (6) Hypertension Conclusion/Plan: Has a history of HTN. Blood pressures this admission have been 130s/90s. Taking multiple cardiac meds for CHF and appears to be well controlled for HTN. 1. Resume home cardiac meds when able. - Lab Results Fish Bones: 05/18/20 10:40 05/18/20 13:10 Core Measures - Anticipated LOS I expect patient to be DC'd or transferred within 96 hours.: Yes - DVT/VTE - Prophylaxis VTE/DVT Device ordered at admit?: Yes
[2020-05-18 16:52] LABS: BILIRUBIN,URINE NEGATIVE (NEGATIVE); GLUCOSE, URINE (UA) 250 mg/dL (NEGATIVE); KETONES,URINE (UA) NEGATIVE (NEGATIVE); LEUKOCYTE ESTERASE, URINE NEGATIVE (NEGATIVE); NITRITE,URINE NEGATIVE (NEGATIVE); OCCULT BLOOD,URINE NEGATIVE (NEGATIVE); PH,URINE 5.5 PH (5.0-7.5); PROTEIN,URINE NEGATIVE (NEGATIVE); UROBILINOGEN,URINE 0.2 (NORMAL) E.U./dL (NORMAL)
[2020-05-18 16:53] LABS: CLARITY,URINE CLEAR (CLEAR)
[2020-05-18] MEDS: INSULIN ASPART 300 UNIT/3 ML PEN SUBQ SCH ×2 (17:23→20:52)
[2020-05-18] MEDS: SODIUM CHLORIDE FLUSH 0.9% 10 ML SYRINGE IVP SCH ×2 (17:23→23:44)
--- NOTE | 2020-05-18 18:52 | PHARMACY PROGRESS NOTE ---
- Best Possible Medication History Admit Date and Time: 05/18/20 1356 Processed by: Pharmacy Medication History completed: Yes Patient Interview: Completed Secondary Source(s): Physician records (PATIENT INTERVIEWED BY PHARMACY. PATIENT ABLE TO CONFIRM HOME MEDICATIONS ), Pharmacy records, Insurance records As the person ultimately responsible for medication therapy, providers are able to order a medication from an existing home medication list in [facility] via the "Reconcile Routine" prior to Confirmation of that medication by it support analyst. Such practice is discouraged except when the physician, in their clinical judgment, deems that a medical need exists for a medication without regard to previous use.
[2020-05-18 20:26] LABS: HEMOGLOBIN A1c% 7.4 % (4.27-6.07)
[2020-05-19] MEDS: LACTATED RINGERS 1,000 ML IV SCH ×5 (01:59→21:48)
[2020-05-19 05:19] LABS: BASOPHILS % (AUTO) 0.3 %; EOSINOPHILS # (AUTO) 0.1 10^3/uL (0.0-0.7); EOSINOPHILS % (AUTO) 0.8 %; LYMPHOCYTES # (AUTO) 1.5 10^3/uL (1.5-3.5); LYMPHOCYTES % (AUTO) 21.3 %; MEAN CORPUSCULAR HEMOGLOBIN 23.5 pg (27.0-31.0); MEAN CORPUSCULAR VOLUME 75.7 fL (80.0-94.0); MEAN PLATELET VOLUME 10.1 fL (7.4-11.4); MONOCYTES # (AUTO) 0.7 10^3/uL (0.0-1.0); MONOCYTES % (AUTO) 9.2 %; NEUTROPHILS # (AUTO) 4.9 10^3/uL (1.5-6.6); NEUTROPHILS % (AUTO) 68.1 %; PLT - PLATELET COUNT 283 10^3/uL (130-450); RED BLOOD COUNT 4.69 10^6/uL (4.70-6.10); RED CELL DISTRIBUTION WIDTH 13.9 % (12.0-15.0); WHITE BLOOD COUNT 7.2 x10^3/uL (4.8-10.8)
[2020-05-19 05:40] LABS: CALCIUM 8.1 mg/dL (8.5-10.3); CREATININE 2.6 mg/dL (0.6-1.2)
[2020-05-19] MEDS: INSULIN ASPART 300 UNIT/3 ML PEN SUBQ SCH ×4 (09:34→21:22)
[2020-05-19] MEDS: SODIUM CHLORIDE FLUSH 0.9% 10 ML SYRINGE IVP SCH ×3 (09:35→23:53)
--- NOTE | 2020-05-19 10:20 | PROVIDER PROGRESS NOTE ---
Subjective - Prog Note Date Prog Note Date: 05/19/20 - Subjective Pt reports feeling: Improved (Pt reports he is feeling well, no n/v, pain, SOB or fevers. Slept well overnight. Good appetite and urine output.) Objective - Vital Signs/Intake & Output Reviewed Vital Signs: Yes Vital Signs: Vital Signs x48h Temp Pulse Resp BP Pulse Ox 05/19/20 08:00 37.3 C 79 14 118/80 97 Intake & Output: Intake & Output 05/16/20 05/17/20 05/18/20 05/19/20 23:59 23:59 23:59 23:59 Intake Total 4195 1980 Output Total 1570 6165 Balance 3892 -2928 - Objective General Appearance: positive: No acute distress Eyes Bilateral: positive: Normal inspection Eyes: OD Abnormal EOM (cranial mononeuropathy III, fixed movement) ENT: positive: ENT inspection nml, Pharynx nml, No signs of dehydration Neck: positive: Nml inspection, Thyroid nml Respiratory: positive: No respiratory distress, Breath sounds nml Cardiovascular: positive: Regular rate & rhythm, No murmur, No gallop Peripheral Pulses: 2+ Radial (R), 2+ Radial (L), 2+ Dorsalis pedis (R), 2+ Dorsalis pedis (L) Abdomen: positive: Non-tender, No organomegaly, Nml bowel sounds, No distention Skin: positive: Color nml Extremities: positive: Non-tender, Full ROM, Nml appearance Neurologic/Psychiatric: positive: Oriented x3 - Lab Results Fish Bones: 05/19/20 04:37 05/19/20 04:37 Other Labs: Lab Results x24hrs 05/19/20 05/19/20 05/19/20 Range/Units 07:24 04:37 04:37 WBC 7.2 (4.8-10.8) x10^3/uL RBC 4.69 L (4.70-6.10) 10^6/uL Hgb 11.0 L (14.0-18.0) g/dL Hct 35.5 L (42.0-52.0) % MCV 75.7 L (80.0-94.0) fL MCH 23.5 L (27.0-31.0) pg MCHC 31.0 L (32.0-36.0) g/dL RDW 13.9 (12.0-15.0) % Plt Count 283 (130-450) 10^3/uL MPV 10.1 (7.4-11.4) fL Neut # (Auto) 4.9 (1.5-6.6) 10^3/uL Lymph # (Auto) 1.5 (1.5-3.5) 10^3/uL [place] # (Auto) 0.7 (0.0-1.0) 10^3/uL Eos # (Auto) 0.1 (0.0-0.7) 10^3/uL Baso # (Auto) 0.0 (0.0-0.1) 10^3/uL Absolute Nucleated RBC 0.00 x10^3/uL Nucleated RBC % 0.0 /100WBC Sodium 134 L (135-145) mmol/L Potassium 4.2 (3.5-5.0) mmol/L Chloride 100 L (101-111) mmol/L Carbon Dioxide 23 (21-32) mmol/L Anion Gap 11.0 (6-13) BUN 60 H (6-20) mg/dL Creatinine 2.6 H (0.6-1.2) mg/dL Estimated GFR (MDRD) 31 L (>89) Glucose 138 H (70-100) mg/dL POC Whole Bld Glucose 115 H (70 - 100) mg/dL Estimat Average Glucose (70-100) mg/dL Hemoglobin A1c % (4.27-6.07) % Lactic Acid (0.5-2.2) mmol/L Calcium 8.1 L (8.5-10.3) mg/dL Magnesium (1.7-2.8) mg/dL Total Bilirubin (0.2-1.0) mg/dL AST (10-42) IU/L ALT (10-60) IU/L Alkaline Phosphatase (42-121) IU/L Total Protein (6.7-8.2) g/dL Albumin (3.2-5.5) g/dL Globulin (2.1-4.2) g/dL Albumin/Globulin Ratio (1.0-2.2) Lipase (22-51) U/L Urine Color Urine Clarity (CLEAR) Urine pH (5.0-7.5) PH Ur Specific Devol (1.002-1.030) Urine Protein (NEGATIVE) mg/dL Urine Glucose (UA) (NEGATIVE) mg/dL Urine Ketones (NEGATIVE) mg/dL Urine Occult Blood (NEGATIVE) Urine Nitrite (NEGATIVE) Urine Bilirubin (NEGATIVE) Urine Urobilinogen (NORMAL) E.U./dL Ur Leukocyte Esterase (NEGATIVE) Ur Microscopic Review Urine Culture Comments Nasal Adenovirus (PCR) Nasal B. parapertussis DNA (PCR) Nasal Coronavir 229E PCR Nasal Coronavir HKU1 PCR Nasal Coronavir NL63 PCR Nasal Coronavir OC43 PCR Nasal Enterovir/Rhinovir PCR Nasal Influenza B PCR Nasal Influenza A PCR Nasal Parainfluen 1 PCR Nasal Parainfluen 2 PCR Nasal Parainfluen 3 PCR Nasal Parainfluen 4 PCR Nasal RSV (PCR) Nasal B.pertussis DNA PCR Nasal C.pneumoniae (PCR) Agusto Human Metapneumo PCR Nasal M.pneumoniae (PCR) Nasal SARS-CoV-2 (PCR) 05/18/20 05/18/20 05/18/20 Range/Units 20:47 16:40 16:33 WBC (4.8-10.8) x10^3/uL RBC (4.70-6.10) 10^6/uL Hgb (14.0-18.0) g/dL Hct (42.0-52.0) % MCV (80.0-94.0) fL MCH (27.0-31.0) pg MCHC (32.0-36.0) g/dL RDW (12.0-15.0) % Plt Count (130-450) 10^3/uL MPV (7.4-11.4) fL Neut # (Auto) (1.5-6.6) 10^3/uL Lymph # (Auto) (1.5-3.5) 10^3/uL [place] # (Auto) (0.0-1.0) 10^3/uL Eos # (Auto) (0.0-0.7) 10^3/uL Baso # (Auto) (0.0-0.1) 10^3/uL Absolute Nucleated RBC x10^3/uL Nucleated RBC % /100WBC Sodium (135-145) mmol/L Potassium (3.5-5.0) mmol/L Chloride (101-111) mmol/L Carbon Dioxide (21-32) mmol/L Anion Gap (6-13) BUN (6-20) mg/dL Creatinine (0.6-1.2) mg/dL Estimated GFR (MDRD) (>89) Glucose (70-100) mg/dL POC Whole Bld Glucose 115 H 83 (70 - 100) mg/dL Estimat Average Glucose (70-100) mg/dL Hemoglobin A1c % (4.27-6.07) % Lactic Acid (0.5-2.2) mmol/L Calcium (8.5-10.3) mg/dL Magnesium (1.7-2.8) mg/dL Total Bilirubin (0.2-1.0) mg/dL AST (10-42) IU/L ALT (10-60) IU/L Alkaline Phosphatase (42-121) IU/L Total Protein (6.7-8.2) g/dL Albumin (3.2-5.5) g/dL Globulin (2.1-4.2) g/dL Albumin/Globulin Ratio (1.0-2.2) Lipase (22-51) U/L Urine Color YELLOW Urine Clarity CLEAR (CLEAR) Urine pH 5.5 (5.0-7.5) PH Ur Specific Devol 1.020 (1.002-1.030) Urine Protein NEGATIVE (NEGATIVE) mg/dL Urine Glucose (UA) 250 H (NEGATIVE) mg/dL Urine Ketones NEGATIVE (NEGATIVE) mg/dL Urine Occult Blood NEGATIVE (NEGATIVE) Urine Nitrite NEGATIVE (NEGATIVE) Urine Bilirubin NEGATIVE (NEGATIVE) Urine Urobilinogen 0.2 (NORMAL) (NORMAL) E.U./dL Ur Leukocyte Esterase NEGATIVE (NEGATIVE) Ur Microscopic Review NOT INDICATED Urine Culture Comments NOT INDICATED Nasal Adenovirus (PCR) Nasal B. parapertussis DNA (PCR) Nasal Coronavir 229E PCR Nasal Coronavir HKU1 PCR Nasal Coronavir NL63 PCR Nasal Coronavir OC43 PCR Nasal Enterovir/Rhinovir PCR Nasal Influenza B PCR Nasal Influenza A PCR Nasal Parainfluen 1 PCR Nasal Parainfluen 2 PCR Nasal Parainfluen 3 PCR Nasal Parainfluen 4 PCR Nasal RSV (PCR) Nasal B.pertussis DNA PCR Nasal C.pneumoniae (PCR) Agusto Human Metapneumo PCR Nasal M.pneumoniae (PCR) Nasal SARS-CoV-2 (PCR) 05/18/20 05/18/20 05/18/20 Range/Units 13:10 13:10 13:10 WBC (4.8-10.8) x10^3/uL RBC (4.70-6.10) 10^6/uL Hgb (14.0-18.0) g/dL Hct (42.0-52.0) % MCV (80.0-94.0) fL MCH (27.0-31.0) pg MCHC (32.0-36.0) g/dL RDW (12.0-15.0) % Plt Count (130-450) 10^3/uL MPV (7.4-11.4) fL Neut # (Auto) (1.5-6.6) 10^3/uL Lymph # (Auto) (1.5-3.5) 10^3/uL [place] # (Auto) (0.0-1.0) 10^3/uL Eos # (Auto) (0.0-0.7) 10^3/uL Baso # (Auto) (0.0-0.1) 10^3/uL Absolute Nucleated RBC x10^3/uL Nucleated RBC % /100WBC Sodium 132 L (135-145) mmol/L Potassium 4.4 (3.5-5.0) mmol/L Chloride 95 L (101-111) mmol/L Carbon Dioxide 22 (21-32) mmol/L Anion Gap 15.0 H (6-13) BUN 75 H (6-20) mg/dL Creatinine 4.8 H (0.6-1.2) mg/dL Estimated GFR (MDRD) 15 L (>89) Glucose 106 H (70-100) mg/dL POC Whole Bld Glucose (70 - 100) mg/dL Estimat Average Glucose 166 H (70-100) mg/dL Hemoglobin A1c % 7.4 H (4.27-6.07) % Lactic Acid 1.0 (0.5-2.2) mmol/L Calcium 8.2 L (8.5-10.3) mg/dL Magnesium (1.7-2.8) mg/dL Total Bilirubin (0.2-1.0) mg/dL AST (10-42) IU/L ALT (10-60) IU/L Alkaline Phosphatase (42-121) IU/L Total Protein (6.7-8.2) g/dL Albumin (3.2-5.5) g/dL Globulin (2.1-4.2) g/dL Albumin/Globulin Ratio (1.0-2.2) Lipase (22-51) U/L Urine Color Urine Clarity (CLEAR) Urine pH (5.0-7.5) PH Ur Specific Devol (1.002-1.030) Urine Protein (NEGATIVE) mg/dL Urine Glucose (UA) (NEGATIVE) mg/dL Urine Ketones (NEGATIVE) mg/dL Urine Occult Blood (NEGATIVE) Urine Nitrite (NEGATIVE) Urine Bilirubin (NEGATIVE) Urine Urobilinogen (NORMAL) E.U./dL Ur Leukocyte Esterase (NEGATIVE) Ur Microscopic Review Urine Culture Comments Nasal Adenovirus (PCR) Nasal B. parapertussis DNA (PCR) Nasal Coronavir 229E PCR Nasal Coronavir HKU1 PCR Nasal Coronavir NL63 PCR Nasal Coronavir OC43 PCR Nasal Enterovir/Rhinovir PCR Nasal Influenza B PCR Nasal Influenza A PCR Nasal Parainfluen 1 PCR Nasal Parainfluen 2 PCR Nasal Parainfluen 3 PCR Nasal Parainfluen 4 PCR Nasal RSV (PCR) Nasal B.pertussis DNA PCR Nasal C.pneumoniae (PCR) Agusto Human Metapneumo PCR Nasal M.pneumoniae (PCR) Nasal SARS-CoV-2 (PCR) 05/18/20 05/18/20 05/18/20 Range/Units 11:20 10:41 10:40 WBC (4.8-10.8) x10^3/uL RBC (4.70-6.10) 10^6/uL Hgb (14.0-18.0) g/dL Hct (42.0-52.0) % MCV (80.0-94.0) fL MCH (27.0-31.0) pg MCHC (32.0-36.0) g/dL RDW (12.0-15.0) % Plt Count (130-450) 10^3/uL MPV (7.4-11.4) fL Neut # (Auto) (1.5-6.6) 10^3/uL Lymph # (Auto) (1.5-3.5) 10^3/uL [place] # (Auto) (0.0-1.0) 10^3/uL Eos # (Auto) (0.0-0.7) 10^3/uL Baso # (Auto) (0.0-0.1) 10^3/uL Absolute Nucleated RBC x10^3/uL Nucleated RBC % /100WBC Sodium 133 L (135-145) mmol/L Potassium 4.1 (3.5-5.0) mmol/L Chloride 92 L (101-111) mmol/L Carbon Dioxide 24 (21-32) mmol/L Anion Gap 17.0 H (6-13) BUN 79 H (6-20) mg/dL Creatinine 5.6 H (0.6-1.2) mg/dL Estimated GFR (MDRD) 13 L (>89) Glucose 69 L (70-100) mg/dL POC Whole Bld Glucose 63 L (70 - 100) mg/dL Estimat Average Glucose (70-100) mg/dL Hemoglobin A1c % (4.27-6.07) % Lactic Acid (0.5-2.2) mmol/L Calcium 8.8 (8.5-10.3) mg/dL Magnesium 2.2 (1.7-2.8) mg/dL Total Bilirubin 0.7 (0.2-1.0) mg/dL AST 18 (10-42) IU/L ALT 16 (10-60) IU/L Alkaline Phosphatase 67 (42-121) IU/L Total Protein 8.0 (6.7-8.2) g/dL Albumin 4.2 (3.2-5.5) g/dL Globulin 3.8 (2.1-4.2) g/dL Albumin/Globulin Ratio 1.1 (1.0-2.2) Lipase 53 H (22-51) U/L Urine Color Urine Clarity (CLEAR) Urine pH (5.0-7.5) PH Ur Specific Devol (1.002-1.030) Urine Protein (NEGATIVE) mg/dL Urine Glucose (UA) (NEGATIVE) mg/dL Urine Ketones (NEGATIVE) mg/dL Urine Occult Blood (NEGATIVE) Urine Nitrite (NEGATIVE) Urine Bilirubin (NEGATIVE) Urine Urobilinogen (NORMAL) E.U./dL Ur Leukocyte Esterase (NEGATIVE) Ur Microscopic Review Urine Culture Comments Nasal Adenovirus (PCR) NOT DETECTED Nasal B. parapertussis DNA (PCR) NOT DETECTED Nasal Coronavir 229E PCR NOT DETECTED Nasal Coronavir HKU1 PCR NOT DETECTED Nasal Coronavir NL63 PCR NOT DETECTED Nasal Coronavir OC43 PCR NOT DETECTED Nasal Enterovir/Rhinovir PCR NOT DETECTED Nasal Influenza B PCR NOT DETECTED Nasal Influenza A PCR NOT DETECTED Nasal Parainfluen 1 PCR NOT DETECTED Nasal Parainfluen 2 PCR NOT DETECTED Nasal Parainfluen 3 PCR NOT DETECTED Nasal Parainfluen 4 PCR NOT DETECTED Nasal RSV (PCR) NOT DETECTED Nasal B.pertussis DNA PCR NOT DETECTED Nasal C.pneumoniae (PCR) NOT DETECTED Agusto Human Metapneumo PCR NOT DETECTED Nasal M.pneumoniae (PCR) NOT DETECTED Nasal SARS-CoV-2 (PCR) NOT DETECTED 05/18/20 Range/Units 10:40 WBC 5.8 (4.8-10.8) x10^3/uL RBC 4.93 (4.70-6.10) 10^6/uL Hgb 11.5 L (14.0-18.0) g/dL Hct 37.1 L (42.0-52.0) % MCV 75.3 L (80.0-94.0) fL MCH 23.3 L (27.0-31.0) pg MCHC 31.0 L (32.0-36.0) g/dL RDW 13.9 (12.0-15.0) % Plt Count 287 (130-450) 10^3/uL MPV 10.2 (7.4-11.4) fL Neut # (Auto) 4.3 (1.5-6.6) 10^3/uL Lymph # (Auto) 0.9 L (1.5-3.5) 10^3/uL [place] # (Auto) 0.5 (0.0-1.0) 10^3/uL Eos # (Auto) 0.1 (0.0-0.7) 10^3/uL Baso # (Auto) 0.0 (0.0-0.1) 10^3/uL Absolute Nucleated RBC 0.00 x10^3/uL Nucleated RBC % 0.0 /100WBC Sodium (135-145) mmol/L Potassium (3.5-5.0) mmol/L Chloride (101-111) mmol/L Carbon Dioxide (21-32) mmol/L Anion Gap (6-13) BUN (6-20) mg/dL Creatinine (0.6-1.2) mg/dL Estimated GFR (MDRD) (>89) Glucose (70-100) mg/dL POC Whole Bld Glucose (70 - 100) mg/dL Estimat Average Glucose (70-100) mg/dL Hemoglobin A1c % (4.27-6.07) % Lactic Acid (0.5-2.2) mmol/L Calcium (8.5-10.3) mg/dL Magnesium (1.7-2.8) mg/dL Total Bilirubin (0.2-1.0) mg/dL AST (10-42) IU/L ALT (10-60) IU/L Alkaline Phosphatase (42-121) IU/L Total Protein (6.7-8.2) g/dL Albumin (3.2-5.5) g/dL Globulin (2.1-4.2) g/dL Albumin/Globulin Ratio (1.0-2.2) Lipase (22-51) U/L Urine Color Urine Clarity (CLEAR) Urine pH (5.0-7.5) PH Ur Specific [place]ol (1.002-1.030) Urine Protein (NEGATIVE) mg/dL Urine Glucose (UA) (NEGATIVE) mg/dL Urine Ketones (NEGATIVE) mg/dL Urine Occult Blood (NEGATIVE) Urine Nitrite (NEGATIVE) Urine Bilirubin (NEGATIVE) Urine Urobilinogen (NORMAL) E.U./dL Ur Leukocyte Esterase (NEGATIVE) Ur Microscopic Review Urine Culture Comments Nasal Adenovirus (PCR) Nasal B. parapertussis DNA (PCR) Nasal Coronavir 229E PCR Nasal Coronavir HKU1 PCR Nasal Coronavir NL63 PCR Nasal Coronavir OC43 PCR Nasal Enterovir/Rhinovir PCR Nasal Influenza B PCR Nasal Influenza A PCR Nasal Parainfluen 1 PCR Nasal Parainfluen 2 PCR Nasal Parainfluen 3 PCR Nasal Parainfluen 4 PCR Nasal RSV (PCR) Nasal B.pertussis DNA PCR Nasal C.pneumoniae (PCR) Agusto Human Metapneumo PCR Nasal M.pneumoniae (PCR) Nasal SARS-CoV-2 (PCR) Sepsis Event Note (H) - Evaluation Current Stage of Sepsis: Ruled out Assessment/Plan - Problem List (1) Acute kidney injury Impression: Acute kidney injury due to dehydration related to non-dose related use of Jardiance, newly prescribed approximately 1-2 weeks ago. Creatinine in the ED was 5.6, decreased to 4.8 after 1L fluid bolus. Prior creatinine 1.2 in December 2019. Today it is down to 2.6 and continues to improve. Denies n/v and has had good urine output. 1. Encourage oral intake and hydration. 2. Monitor CMP daily, trend creatinine 3. Stop Jardiance 4. Monitor urine output (2) Nausea Impression: Resolved. Associated with acute kidney injury, improved with IVF and decreasing creatinine. Denies n/v today and reports having a good appetitie. 1. PRN antiemetics as needed 2. Encourage oral intake. (3) Congestive heart failure Impression: Stable. Chronic systolic heart failure with dilated cardiomyopathy, last LVEF 55% in September 2019, up from 25-30% in February 2019. Has been taking home medications appropriately. No signs of exacerbation and tolerated fluid replacement. No SOB or wheezing, no signs of fluid overload. Will continue home meds and closely monitor urine output and signs of fluid overload. 113.9kg on admit. 1. Resume home dose of Carvedilol, Lisinopril, Spironolactone and Lasix when appropriate. 2. Monitor CMP daily. 3. Monitor urine output closely. 4. Daily weights. Qualifiers: Heart failure type: systolic Heart failure chronicity: chronic Qualified Code(s): I50.22 - Chronic systolic (congestive) heart failure (4) Type 2 diabetes mellitus Impression: Stable. A1C yesterday was 7.4%, down from 8.3% December 2019. Currently taking Metformin and Glipizide, Jardiance stopped yesterday. Does not check his blood sugars daily. Reports he was supposed to come for diabetic education but has not been able to schedule a visit. Trying to maintain a carbohydrate managed diet. Complaining of blurry vision in the right eye, last eye exam was 2 months ago at which time he was instructed to see a retinal specialist in [place]. He has not been able to schedule this appointment yet. On exam his pupil appears cloudy and he should be assessed for cataracts. 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 No foot wounds seen on exam today. 1. Sliding Scale Insulin. 2. Carb Managed diet. 3. Diabetic education. 4. Follow up retinal specialist after discharge. 5. Follow up PCP after discharge. 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 Poor dentition, likely related to previous drug use. Missing multiple teeth, remaining front teeth are cracked. Does not have a dentist that he sees regularly, feels embarrassed about the appearance. Complaining of front tooth pain, dull ache and not new. No overt signs of tooth infection noted. 1. Follow up with dentist after discharge. 2. Social work referral for dentistry. (6) Hypertension Impression: Stable. Has a history of HTN. Blood pressures this admission have been 130s/90s. Taking multiple cardiac meds for CHF and appears to be well controlled for HTN. 1. Resume home cardiac meds when able. 2. Monitor BP.
[2020-05-20] MEDS: LACTATED RINGERS 1,000 ML IV SCH ×2 (02:48→07:55)
[2020-05-20 05:21] LABS: CALCIUM 8.4 mg/dL (8.5-10.3); CREATININE 1.4 mg/dL (0.6-1.2)
[2020-05-20] MEDS: INSULIN ASPART 300 UNIT/3 ML PEN SUBQ SCH ×2 (07:39→11:41)
--- NOTE | 2020-05-20 08:55 | Discharge Plan ---
Discharge Plan Problem Reviewed?: Yes Disposition: Home, Self Care Condition: Stable Diet: Diabetic Activity Restrictions: Activity as Tolerated Shower Restrictions: No Driving Restrictions: No Health Concerns: You presented to our emergency room because you were getting more more tired, and having less and less urine output. You were very nauseated. We found you to be severely dehydrated. One of the ways we measure kidney function is a filtration called creatinine. Normal is between 0.6 and 1.2. You were 5.6 in the emergency room. We hydrated you, and gave you intravenous fluids to do that. Your creatinine is now 1.4. For you baseline is anywhere between 0.9 and 1.1. We think it is the Jardiance that you were given for your diabetes that caused this problem. Plan of Treatment: 1. Please see your primary care provider in follow-up in the next 1 week. They will need to check your blood work in the form of a BMP. 2. The goal of an A1c in a diabetic is to be less than 7%. In the past you were as high as 8.8% or 10%. When you were started on Jardiance you were still 8.8%. Since we are having to stop your Jardiance, your primary care provider may have to start you on insulin. I would recommend you be started on Lantus 10 units at night. But that is a discussion between you and your primary care provider because you will need instruction on how to do that. 3. As well as stopping your Jardiance, I also think that you should stop taking Lasix for the next week. Then resume it at 20 mg a day instead of 40 mg a day after a week. Make sure you drink at least 1000 cc of water a day. That is about 32 ounces. Care Goals: 1. To get your kidney function back down to your baseline level 2. To get your A1c is a measurement of your diabetes below 7% Assessment: Patient states that he understands care goals and will promised to follow through No Smoking: If you smoke, Please STOP! Call for help. Follow-up with: Matt Steward MD [Primary Care Provider] -
--- NOTE | 2020-05-20 08:55 | DISCHARGE SUMMARY ---
"Discharge Summary Admit Date: 05/18/20 Discharge Date: 05/20/20 Discharging Provider: Lyla Watson Primary Care Provider: Isai Regalado Code Status: Attempt Resuscitation Condition at Discharge: Stable Discharge Disposition: 01 Home, Self Care - DIAGNOSES Discharge Diagnoses with Status of Each Condition: (1) Acute kidney injury Impression: Improved. Acute kidney injury due to dehydration related to non-dose related use of Jardiance, newly prescribed approximately 1-2 weeks ago. Creatinine in the ED was 5.6. Prior creatinine 1.2 in December 2019, baseline appears to be 0.9-1.2. Today it is down to 1.4 and continues to improve. Denies n/v and has had good urine output and oral intake. Encouraged to drink at least 1500mL fluid at home to maintain hydration and kidney function. Will need to follow up with PCP regarding possible need for insulin after the Jardiance was discontinued. 1. Encourage oral intake and hydration. 2. Stop Jardiance 3. Monitor urine output (2) Nausea Impression: Resolved. Associated with acute kidney injury, improved with IVF and decreasing creatinine. Denies n/v today and reports having a good appetitie. Has not required antiemetics recently. 1. Encourage oral intake. (3) Congestive heart failure Impression: Stable. Chronic systolic heart failure with dilated cardiomyopathy, last LVEF 55% in September 2019, up from 25-30% in February 2019. Has been taking home medications appropriately. No signs of exacerbation and tolerated fluid replacement. No SOB or wheezing, no signs of fluid overload. Will continue home meds and closely monitor urine output and signs of fluid overload. 113.9kg on admit. Instructed to not take Lasix x1 week while kidneys continue to impro ve. 1. Resume home dose of Carvedilol, Lisinopril, and Spironolactone. 2. Resume Lasix in one week. 3. Monitor urine output closely. 4. Daily weights. Qualifiers: Heart failure type: systolic Heart failure chronicity: chronic Qualified Code(s): I50.22 - Chronic systolic (congestive) heart failure (4) Type 2 diabetes mellitus Impression: Stable. A1C 7.4%, down from 8.3% December 2019. Currently taking Metformin and Glipizide, Jardiance stopped on admission. Does not check his blood sugars daily. Reports he was supposed to come for diabetic education but has not been able to schedule a visit. Trying to maintain a carbohydrate managed diet. Complaining of blurry vision in the right eye, last eye exam was 2 months ago at which time he was instructed to see a retinal specialist in [place]. He has not been able to schedule this appointment yet. On exam his pupil appears cloudy and he should be assessed for cataracts. 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 No foot wounds seen on exam today. 1. Follow up PCP for diabetes management, may need insulin. 2. Carb Managed diet. 3. Diabetic education-follow up outpatient as needed. 4. Follow up retinal specialist after discharge. Qualifiers: Diabetes mellitus middle or intermediate school principal insulin use: without middle or intermediate school principal use Diabetes mellitus complication status: with ophthalmic complications Diabetes mellitus complication detail: with diabetic retinopathy Diabetic retinopathy severity: with unspecified retinopathy severity Diabetes mellitus macular edema: without macular edema Laterality: right Qualified Code(s): E11.319 - Type 2 diabetes mellitus with unspecified diabetic retinopathy without macular edema (5) Poor dentition Impression: Stable. Poor dentition, likely related to previous drug use. Missing multiple teeth, remaining front teeth are cracked. Does not have a dentist that he sees regularly, feels embarrassed about the appearance. Complaining of front tooth pain, dull ache and not new. No overt signs of tooth infection noted. Seen by Social Work and given information for [facility]. 1. Follow up with dentist after discharge. (6) Hypertension Impression: Stable. Has a history of HTN. Blood pressures this admission have been 130s/90s. Taking multiple cardiac meds for CHF and appears to be well controlled for HTN. 1. Resume home cardiac meds. 2. Monitor BP. - HPI History of Present Illness: 59 year old male diagnosed with DM2 in February 2019 seen in the ED for 3 days of nausea and vomiting. He denies recent sick contacts or change in diet. Denies fevers, chills, shortness of breath or fatigue. Reports he was started on a new diabetes medication, Jardiance, by his PCP approximately 2 weeks ago (in addition to his previous medications which include Glipizide and Metformin). He is supposed to be checking his blood sugars daily but has not been doing so. His last A1C was 8.3% December 2019 and he is trying to maintain a carbohydrate managed diet. He takes his medications as prescribed. In addition to noting new n/v over the last 3 days, he has had decreased appetite, increased thirst (drinking multiple bottles of water a day), and decreased urine output. He was found to have elevated creatinine to 5.6 in the ED, up from 1.2 in December 2019. Additional labs included a glucose of 69 and lactic acid 1.0. He was admitted for acute kidney injury related to dehydration 2/2 Jardiance and started on IV fluid replacement. In the ED he received a fluid bolus with good effect on the creatinine, which decreased to 4.8, and he was able to urinate appropriately. Regarding diabetic complications, he has blurry vision in the right eye as well as cranial mononeuropathy III. His last eye exam was 2 months ago and he was instructed to see a retinal specialist but has not been able to do so yet. He has occasional numbness and tingling in his hands and feet. No foot ulcers noted on physical exam. Additionally, Pt has a history of chronic systolic heart failure with dilated cardiomyopathy diagnosed in 2018 at the time he was diagnosed with DM2. At that time he presented with 3 weeks SOB and intermittent chest pain after having recently used cocaine. Also with a remote hx of methamphetamines and heroin. His troponins were found to be in the 50s and flat. An echo showed EF 25-30%. He had pulmonary hypertension with a PA pressure of 60mmHg, with stress test negative for reversible defects. His telemetry showed a 10 beat run of V tach. His admit weight at that time was 260 pounds, discharge weight of 196 pounds. He has been following up regularly with Cardiology, and in June 2019 was started on a 7 day Zio patch. He takes Carvedilol, Lisinopril and Lasix. A repeat echo in September 2019 revealed LVEF 55%. He denies current chest pain, SOB at rest or on exertion. Remaining ROS negative. - CONSULTS | PROCEDURES Consultations: Social Work Procedures: CXR 2/3 normal - HOSPITAL COURSE Hospital Course: Pt admitted with creatinine 5.6, nausea, weakness, and low urine output 1 week after starting Jardiance for diabetes management, in addition to Glipizide and Metformin. Baseline creatinine is 0.9-1.2 and he was admitted for fluid resuscitation and closer monitoring. He recieved 3L fluid bolus initially on a dmit with good results as creatinine started to decrease. Over the next 2 days the creatinine improved greatly and on day of discharge was 1.4. Hgb A1C was 7.4%. He was given insulin with meals while in house, with BGs 110s-160s. Nausea resolved on HD 1 with fluid boluses and he has been tolerating a carb managed diet with appropriate po intake. Urine output also appropriate. He was discharged with instructions to stop Jardiance, hold Lasix x1 week, and to follow up with PCP regarding diabetes management. His CHF and HTN were well controlled this admission, no HTN and no concerns for fluid overload. He was additionally instructed to follow up with a dentist regarding tooth pain related to his poor dentition. - ALLERGIES Allergies/Adverse Reactions: Allergies Allergy/AdvReac Type Severity Reaction Status Date / Time No Known Drug Allergies Allergy Verified 05/18/20 10:23 - MEDICATIONS Home Medications: Ambulatory Orders Medication Instructions Recorded Confirmed Aspirin [Aspirin EC] 81 mg PO DAILY 05/21/19 05/18/20 Atorvastatin Calcium 40 mg PO DAILY 05/21/19 05/18/20 Metformin HCl 500 mg PO BID 05/21/19 05/18/20 Spironolactone 25 mg PO DAILY 05/21/19 05/18/20 glipiZIDE [Glucotrol] 5 mg PO DAILY 05/21/19 05/18/20 Carvedilol [Coreg] 25 mg PO DAILY 05/18/20 05/18/20 Furosemide [Lasix] 40 mg PO DAILY 05/18/20 05/18/20 Lisinopril [Zestril] 30 mg PO DAILY 05/18/20 05/18/20 Sildenafil Citrate [Sildenafil] 20 mg PO PRN PRN 05/18/20 05/18/20 - PHYSICAL EXAM AT DISCHARGE General Appearance: positive: No acute distress Eyes Bilateral: positive: Other (Left eye PERRL, EOM intact; Right eye with cranial mononeuropathy III, EOM not intact. pupil cloudy.) ENT: positive: ENT inspection nml, Pharynx nml, No signs of dehydration Neck: positive: Nml inspection Respiratory: positive: Chest non-tender, No respiratory distress, Breath sounds nml Cardiovascular: positive: Regular rate & rhythm, No murmur, No gallop Peripheral Pulses: positive: 2+ Abdomen: positive: Non-tender, No organomegaly, Nml bowel sounds, No distention Skin: positive: Color nml Extremities: positive: Non-tender, Full ROM, Nml appearance Neurologic/Psychiatric: positive: Oriented x3 - LABS Result Diagrams: 05/19/20 04:37 05/20/20 04:27 - DIAGNOSTIC IMAGING Diagnostic Imaging Results: Final report reviewed Diagnostic Imaging Results Comments: 2/3 chest xray normal - SEPSIS Current Stage of Sepsis: Ruled out - FOLLOW UP Follow Up: Follow up PCP and diabetic education Follow up with a dentist for tooth pain and poor dentition - TIME SPENT Time Spent in Discharge (Minutes): 35"
[2020-05-20] MEDS ORDERED: polyethylene glycoL 3350 17 GM PACKET PO SCH (09:00)
[2020-05-20] MEDS: SODIUM CHLORIDE FLUSH 0.9% 10 ML SYRINGE IVP SCH (09:46)
[2020-05-20 12:34] VITALS: BP 137/76
== END 2020-05-20 13:44 | disposition home or self-care (01) | DRG 683 ==
LOC: ED 10:16 → MS2 13:56
PROVIDERS: ADMIT Specialist; ATTEND Specialist
DX: N17.9 Acute kidney failure, unspecified (principal); I50.22 Chronic systolic (congestive) heart failure; I11.0 Hypertensive heart disease with heart failure; I42.0 Dilated cardiomyopathy; E86.0 Dehydration; R11.2 Nausea with vomiting, unspecified; T38.3X5A Adverse effect of insulin and oral hypoglycemic [antidiabetic] drugs, initial encounter; E11.319 Type 2 diabetes mellitus with unspecified diabetic retinopathy without macular edema; E11.40 Type 2 diabetes mellitus with diabetic neuropathy, unspecified; K03.81 Cracked tooth; K08.409 Partial loss of teeth, unspecified cause, unspecified class; R35.1 Nocturia; Z91.19 Patient's noncompliance with other medical treatment and regimen; Z20.822 Contact with and (suspected) exposure to COVID-19; Z79.84 Long term (current) use of oral hypoglycemic drugs; Z79.899 Other long term (current) drug therapy; I25.2 Old myocardial infarction
CPT/HCPCS: 0202U; 36415; 51798; 71045; 80048; 80053; 81003; 83036; 83605; 83690; 83735; 85025; 96361; 96374; 99284; 99285; A9270; J3490; J7120; 81001; 87086

== ENCOUNTER 2020-06-03 12:34 | Outpatient (CLI) | payer MEDICAID ==
[2020-06-03 18:36] LABS: BASOPHILS # (AUTO) 0.1 10^3/uL (0.0-0.1); BASOPHILS % (AUTO) 1.1 %; EOSINOPHILS # (AUTO) 0.1 10^3/uL (0.0-0.7); EOSINOPHILS % (AUTO) 3.1 %; LYMPHOCYTES # (AUTO) 1.7 10^3/uL (1.5-3.5); LYMPHOCYTES % (AUTO) 36.6 %; MEAN CORPUSCULAR HGB CONC 30.8 g/dL (32.0-36.0); MEAN CORPUSCULAR VOLUME 77.8 fL (80.0-94.0); MEAN PLATELET VOLUME 10.8 fL (7.4-11.4); MONOCYTES # (AUTO) 0.3 10^3/uL (0.0-1.0); MONOCYTES % (AUTO) 7.5 %; NEUTROPHILS # (AUTO) 2.4 10^3/uL (1.5-6.6); NEUTROPHILS % (AUTO) 51.5 %; PLT - PLATELET COUNT 315 10^3/uL (130-450); RED BLOOD COUNT 4.59 10^6/uL (4.70-6.10); RED CELL DISTRIBUTION WIDTH 14.4 % (12.0-15.0); WHITE BLOOD COUNT 4.6 x10^3/uL (4.8-10.8)
[2020-06-03 18:57] LABS: CALCIUM 8.9 mg/dL (8.5-10.3); CREATININE 1.4 mg/dL (0.6-1.2)
== END 2020-06-03 12:35 | disposition home or self-care (01) ==
LOC: LAB.N 12:34
PROVIDERS: ATTEND Family Medicine
DX: N17.9 Acute kidney failure, unspecified (principal); D64.9 Anemia, unspecified
CPT/HCPCS: 36415; 80048; 85025

== ENCOUNTER 2020-07-22 08:00 | Outpatient (CLI) | payer MEDICAID ==
[2020-07-22 18:21] LABS: ABSOLUTE RETICS # AUTO 0.062 10^6/uL (0.020-0.110); BASOPHILS % (AUTO) 0.7 %; EOSINOPHILS # (AUTO) 0.2 10^3/uL (0.0-0.7); EOSINOPHILS % (AUTO) 3.2 %; HCT - HEMATOCRIT 37.6 % (42.0-52.0); HGB - HEMOGLOBIN 11.6 g/dL (14.0-18.0); LYMPHOCYTES # (AUTO) 1.6 10^3/uL (1.5-3.5); LYMPHOCYTES % (AUTO) 27.3 %; MEAN CORPUSCULAR HEMOGLOBIN 23.9 pg (27.0-31.0); MEAN CORPUSCULAR HGB CONC 30.9 g/dL (32.0-36.0); MEAN CORPUSCULAR VOLUME 77.4 fL (80.0-94.0); MEAN PLATELET VOLUME 10.8 fL (7.4-11.4); MONOCYTES # (AUTO) 0.4 10^3/uL (0.0-1.0); MONOCYTES % (AUTO) 6.2 %; NEUTROPHILS # (AUTO) 3.7 10^3/uL (1.5-6.6); NEUTROPHILS % (AUTO) 62.3 %; PLT - PLATELET COUNT 293 10^3/uL (130-450); RED BLOOD COUNT 4.86 10^6/uL (4.70-6.10); RED CELL DISTRIBUTION WIDTH 14.8 % (12.0-15.0); RETICULOCYTE COUNT % (AUTO) 1.28 % (0.5-2.3)
[2020-07-22 19:07] LABS: % IRON SATURATION 18 % (20-50); ALBUMIN 4.3 g/dL (3.2-5.5); ALBUMIN/GLOBULIN RATIO 1.3 (1.0-2.2); ALKALINE PHOSPHATASE 86 IU/L (42-121); ALT ALANINE AMINOTRANSFERASE 13 IU/L (10-60); AST ASPARTATE AMINOTRANSFERASE 19 IU/L (10-42); BUN - BLOOD UREA NITROGEN 17 mg/dL (6-20); CALCIUM 9.2 mg/dL (8.5-10.3); CARBON DIOXIDE - CO2 26 mmol/L (21-32); CHLORIDE 97 mmol/L (101-111); CHOL/HDL RATIO 3.8 (<5.0); CHOLESTEROL 124 mg/dL; CREATININE 1.5 mg/dL (0.6-1.2); GFR - MDRD 58 (>89); GLUCOSE 230 mg/dL (70-100); HDL CHOLESTEROL 33 mg/dL; IRON 51 ug/dL (45-182); LDL CHOLESTEROL,CALCULATED 64 mg/dL; LDL/HDL RATIO 1.9 (<3.6); POTASSIUM 4.3 mmol/L (3.5-5.0); SODIUM 135 mmol/L (135-145); THYROID STIMULATING HORMONE 1.63 uIU/mL (0.34-5.60); TOTAL IRON BINDING CAPACITY 284 ug/dL (250-450); TOTAL PROTEIN 7.7 g/dL (6.7-8.2); TRANSFERRIN 203 mg/dL (180-329); TRIGLYCERIDES 133 mg/dL; VLDL CHOLESTEROL 27 mg/dL
[2020-07-22 19:08] LABS: CREATININE,URINE 155.5 mg/dL; MICROALBUM/CREATININE RATIO,UR 1.3 ug/mg (<30.0); MICROALBUMIN,URINE 0.2 mg/dL (0-300.0)
[2020-07-22 19:13] LABS: FERRITIN 357.8 ng/mL (23.9-336.2)
[2020-07-22 20:54] LABS: ESTIMATED AVERAGE GLUCOSE 157 mg/dL (70-100); HEMOGLOBIN A1c% 7.1 % (4.27-6.07)
== END 2020-07-22 23:59 | disposition home or self-care (01) ==
LOC: LAB.WCP 08:00
PROVIDERS: ATTEND Internal Medicine
DX: E11.9 Type 2 diabetes mellitus without complications (principal); D50.9 Iron deficiency anemia, unspecified; Z12.5 Encounter for screening for malignant neoplasm of prostate
CPT/HCPCS: 36415; 80053; 80061; 81599; 82043; 82570; 82607; 82728; 83021; 83036; 83540; 83721; 84153; 84443; 84466; 85014; 85018; 85025; 85041; 85045

== ENCOUNTER 2020-10-12 10:18 | Outpatient (CLI) | payer MEDICAID ==
[2020-10-12 12:25] LABS: CALCIUM 8.9 mg/dL (8.5-10.3); CREATININE 1.4 mg/dL (0.6-1.2); CREATININE,URINE 196.4 mg/dL; MICROALBUM/CREATININE RATIO,UR 1.5 ug/mg (<30.0); MICROALBUMIN,URINE 0.3 mg/dL (0-300.0); POTASSIUM 4.1 mmol/L (3.5-5.0)
[2020-10-12 12:28] LABS: ESTIMATED AVERAGE GLUCOSE 163 mg/dL (70-100); HEMOGLOBIN A1c% 7.3 % (4.27-6.07)
== END 2020-10-12 10:19 | disposition home or self-care (01) ==
LOC: LAB.N 10:18
PROVIDERS: ATTEND Internal Medicine
DX: E11.9 Type 2 diabetes mellitus without complications (principal)
CPT/HCPCS: 36415; 80048; 82043; 82570; 83036

== ENCOUNTER 2022-01-26 13:47 | Outpatient (CLI) | payer MEDICAID ==
[2022-01-26 18:13] LABS: BASOPHILS % (AUTO) 0.4 %; EOSINOPHILS # (AUTO) 0.2 10^3/uL (0.0-0.7); EOSINOPHILS % (AUTO) 3.9 %; HCT - HEMATOCRIT 39.9 % (42.0-52.0); HGB - HEMOGLOBIN 12.4 g/dL (14.0-18.0); LYMPHOCYTES # (AUTO) 1.9 10^3/uL (1.5-3.5); LYMPHOCYTES % (AUTO) 37.4 %; MEAN CORPUSCULAR HEMOGLOBIN 23.8 pg (27.0-31.0); MEAN CORPUSCULAR HGB CONC 31.1 g/dL (32.0-36.0); MEAN CORPUSCULAR VOLUME 76.4 fL (80.0-94.0); MEAN PLATELET VOLUME 10.6 fL (7.4-11.4); MONOCYTES # (AUTO) 0.4 10^3/uL (0.0-1.0); MONOCYTES % (AUTO) 7.8 %; NEUTROPHILS # (AUTO) 2.6 10^3/uL (1.5-6.6); NEUTROPHILS % (AUTO) 50.5 %; PLT - PLATELET COUNT 273 10^3/uL (130-450); RED BLOOD COUNT 5.22 10^6/uL (4.70-6.10); RED CELL DISTRIBUTION WIDTH 14.8 % (12.0-15.0); WHITE BLOOD COUNT 5.2 x10^3/uL (4.8-10.8)
[2022-01-26 18:31] LABS: CALCIUM 9.4 mg/dL (8.5-10.3); CREATININE 1.4 mg/dL (0.6-1.2)
[2022-01-26 21:48] LABS: ESTIMATED AVERAGE GLUCOSE 137 mg/dL (70-100); HEMOGLOBIN A1c% 6.4 % (4.27-6.07)
== END 2022-01-26 13:48 | disposition home or self-care (01) ==
LOC: LAB.N 13:47
PROVIDERS: ATTEND Internal Medicine
DX: I12.9 Hypertensive chronic kidney disease with stage 1 through stage 4 chronic kidney disease, or unspecified chronic kidney disease (principal); E11.22 Type 2 diabetes mellitus with diabetic chronic kidney disease; N18.31 Chronic kidney disease, stage 3a; E11.65 Type 2 diabetes mellitus with hyperglycemia; D63.8 Anemia in other chronic diseases classified elsewhere
CPT/HCPCS: 36415; 80048; 83036; 83540; 84466; 85025

== ENCOUNTER 2022-09-05 13:36 | Outpatient (CLI) | payer MEDICAID ==
--- NOTE | 2022-09-05 14:28 | Sleep Patient Instructions ---
Sleep Center Visit Summary - Patient Visit Information Reason for Visit: Initial consult for evaluation of sleep disordered breathing and other sleep issues. - Patient Instructions Instructions Attached: Sleep Study, Sleep Clinic Visit Additional Instructions: You will be completing a sleep study, either an in-lab polysomnography (PSG) or home sleep study (HST). You will follow-up in the sleep care office after the sleep study is completed to hear the results and talk about therapy, if needed. You will be called by our office staff to schedule this appointment, but you may contact us with any questions. - Clinic Information Contact: [facility] [address] [place] [address] [email or web address] T: [phone]
--- NOTE | 2022-09-05 14:35 | SLEEP CARE CONSULTATION ---
Information from patient questionnaire entered by Maritza Ball. I have reviewed and concur with the information entered by Maritza Ball. This document represents the service I personally performed and the decisions made by me, Mirella Byers ARNP. 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 denies: Choking, Snoring, Gasping for air Toss, Turn, or Twitch while sleeping: No Recalls having dreams: Yes Usually gets out of bed at: 1030AM Feels refreshed in the morning: Yes Morning headache: No Sleepy or fatigued during the day: Yes Ever fallen asleep while driving: No Takes day naps: No Dreams during day naps: No Prior sleep studies: No Additional HPI information: I had the pleasure of seeing BRANDON MAJOR today regarding the possibility of him having a sleep disorder. 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 He is accompanied by Jayla bull career services representative to help with reading/filling out paperwork. He states he was diagnosed with CHF and his lion trainer wants him evaluated for sleep apnea. He states he has had CHF for last 2 years. He has diabetes and diabetic retinopathy with limits of his sight. He states he was told a long time ago that he snored but never that he stopped breathing at night. He denies waking up choking or gasping for air. He only wakes up about two times at night for the bathroom. He states that he wakes up feeling rested normally. He states his niece was just diagnosed this year with sleep apnea and is on a CPAP machine. - Parasomnia Symptoms Ever been unable to move upon waking from sleep: No Walks in sleep: No Talks in sleep: No Ever acted out dreams in sleep: No Ever felt weak in the knees when startled or emotional: No Bothered by creepy, crawly, restless sensations in legs: No Problems with memory or concentration: No Subjective Initial [place] Sleepiness Scale score: 10 (09/04/22) Past Medical History Past Medical History: reports: Hypertension, Congestive Heart Failure, Diabetes, Other (Diabetic retinopathy) Social History The patient's occupation is a [employer]. Patient is Single and lives in [place]. Have you smoked in the past 12 months: No Alcohol use: Yes Alcohol amount and frequency: 2 drinks ONCE A MONTH Caffeine use: Yes Caffeine amount and frequency: 1 CUP coffee DAILY Family History Family history of sleep disordered breathing: Yes Family Hx Sleep Apnea: Sibling: Snoring, Sleep apnea - Treated Allergies and Home Medications Known drug allergies: Yes (JARDIANCE) Drug allergies reviewed: Yes Home medication list reviewed: Yes Allergy and home medication list: Allergies No Known Drug Allergies Allergy Review of Systems Weight loss over past 5 years: 60 Cardiovascular: reports: high blood pressure Respiratory: denies: shortness of breath Gastrointestinal: denies: heartburn Neurological: denies: headaches Psychiatric: denies: Attention Deficit Hyperactivity, anxiety, depression Ear/Nose/Throat: reports: tonsillectomy, wisdom teeth removed Physical Exam Vital signs obtained and entered by: MARITZA Lynn MA Blood Pressure: 112/70 (LEFT ARM) Cuff size: long Heart Rate: 75 O2 Saturation: 98 Height: 5 ft 8 in Weight: 234 lb 12.8 oz Body Mass Index: 35.6 BMI Classification: Obese Neck circumference: 17.5 Mouth and throat: narrow oropharynx Hard palate: normal Uvula: long, edematous Uvula visualization: 0% Mallampati Class IV Tongue: enlarged in size with teeth mirza on lateral edges Tonsils: absent bilaterally (he is not sure if they were removed or not; none seen) Neck: normal w/o lymphadenopathy or thyromegaly Heart: regular rate and rhythm Lungs: clear bilaterally Impression and Plan 1. Suspected Obstructive Sleep Apnea-Hypopnea Syndrome, as suggested by a history of loud and irregular snoring, and excessive daytime sleepiness. He has a diagnosis of congestive heart failure and diabetes. Narrow oropharynx and obe sity are common predisposing factors for obstructive sleep apnea-hypopnea syndrome. I recommend proceeding to polysomnography to confirm the diagnosis and to assess severity. If the patient has significant sleep disordered breathing, a manual CPAP titration study will also be performed to find the optimal treatment pressure. I informed the patient of what the sleep studies involve and after some discussion, obtained agreement to proceed. The pathophysiology of obstructive sleep apnea-hypopnea syndrome was discussed with the patient and health risks of cardiovascular and cerebrovascular disease if not treated. Risks of drowsy driving discussed in detail and patient advised to avoid long distance driving and to picker/puller at the first sign of drowsiness. Patient agreed to plan. * Schedule polysomnography +- manual CPAP titration study and return in 1-2 weeks after the study to discuss result and initiate therapy. * Avoid long distance driving or driving when feeling sleepy. * Avoid alcohol, sedative and muscle relaxant around bedtime. * Attempt to lose weight. * Review instructions provided by trained office staff on how to prepare for the sleep study. * Return for follow-up after sleep study completed. Counseling Topics: Weight loss health impact Visit Type: In Office Time Spent with Patient (minutes): 32 Provider Statement: I spent 100% of the Face to Face Visit with the patient with greater than 50% spent counseling the patient and coordination of care.
[2022-09-05 14:37] VITALS: BP 112/70
== END 2022-09-05 13:37 | disposition home or self-care (01) ==
LOC: SC 13:36
PROVIDERS: ATTEND Nurse Practitioner Family
DX: R53.83 Other fatigue (principal); R06.83 Snoring; I11.0 Hypertensive heart disease with heart failure; I50.9 Heart failure, unspecified; E66.9 Obesity, unspecified; Z68.35 Body mass index [BMI] 35.0-35.9, adult
CPT/HCPCS: 99203; 99212

== ENCOUNTER 2022-10-11 21:10 | Outpatient (CLI) | payer MEDICAID | END 2022-10-11 21:11 | disposition home or self-care (01) | LOC: SC 21:10 | PROVIDERS: ATTEND Nurse Practitioner Family | DX: G47.33 Obstructive sleep apnea (adult) (pediatric) (principal) | CPT/HCPCS: 95810 ==

== ENCOUNTER 2022-11-06 13:28 | Outpatient (CLI) | payer MEDICAID ==
--- NOTE | 2022-11-06 13:46 | Sleep Patient Instructions ---
Sleep Center Visit Summary - Patient Visit Information Reason for Visit: Sleep study followup - Patient Instructions Instructions Attached: CPAP, CPAP Dc Additional Instructions: I recommend that you start on CPAP therapy. Please call the sleep care office to set up once you have been able to discuss with family and physician. Please follow up in the sleep care office. - Clinic Information Contact: [facility] [address] [place] [address] [email or web address] T: [phone]
--- NOTE | 2022-11-06 13:51 | SLEEP CARE CONSULTATION ---
Information from patient questionnaire entered by Maritza Ball. I have reviewed and concur with the information entered by Maritza Ball. This document represents the service I personally performed and the decisions made by , Mirella Byers ARNP. History of Present Illness Service Date and Time: 11/06/2022 1328 Initial [place] Sleepiness Scale score: 10 (09/04/22) Current [place] Sleepiness Scale score: 16 (11/06/22) Additional HPI information: BRANDON MAJOR returns for follow up and results of the recently performed polysomnography. I explained the pathophysiology behind obstructive sleep apnea. We then spent quite a bit of time discussing different treatment options. For mild obstructive sleep apnea, surgery and oral appliance are alternatives to nasal CPAP therapy but in moderate or severe cases, nasal CPAP is the most effective and reliable treatment. Because apnea is primarily in supine position, then positional management therapy could be effective to reduce AHI. Methods discussed such as positioning with pillows, using a T-shirt with tennis balls in the back or commercial products that have a pillow format on back to prevent supine sleep. I reviewed the impact of weight changes on sleep apnea and strongly recommended losing weight. Patient counseled not drink alcohol less than 4 hours before bedtime as it can increase snoring and apnea. Patient was cautioned about risks of drowsy driving until sleepiness symptoms resolve. Patient denies drowsy driving. Sleep Study - Results Type of Sleep Study: Polysomnography (COMPLETED 10/11/22) Prior sleep studies: No Polysomnography/Home Sleep Study results: IMPRESSION: The quality of the study is good. The patient had reduced sleep efficiency due to a prolonged awakenings in the second half of the night. The sleep architecture was abnormal for sleep fragmentation and reduced amount of time spent in slow wave sleep (N3). Respiratory monitoring showed mild obstructive sleep apnea-hypopnea (AHI = 14.7) associated with frequent arousals, oxyhemoglobin desaturation and mild hypoxia (yessenia oxygen saturation of 84%). The respiratory events occurred predominantly during supine sleep (supine AHI = 71.6; non-supine = 13.29). Snore was moderate to loud in intensity. There was no significant periodic leg movement of sleep. Cardiac rhythm was normal sinus rhythm without significant arrhythmia. No abnormal behavior (parasomnia) observed during the night. Allergies and Home Medications Known drug allergies: Yes (empagliflozin) Drug allergies reviewed: Yes Home medication list reviewed: Yes (no changes) Allergy and home medication list: Allergies empagliflozin [From Jardiance] Allergy (Verified 11/05/22 15:21) Review of Systems Review of systems same as previous: Yes (no changes) Physical Exam Vital signs obtained and entered by: MARITZA Lynn MA Blood Pressure: 128/82 (LEFT ARM) Cuff size: regular Heart Rate: 81 O2 Saturation: 98 Height: 5 ft 8 in Weight: 244 lb Body Mass Index: 37.0 BMI Classification: Obese Impression and Plan 1. Obstructive Sleep Apnea-Hypopnea Syndrome, mild, with lowest oxygen saturation of 84%. Positive pressure therapy could benefit CHF and diabetes. I strongly recommended that patient start CPAP therapy but he would like to think about it and talk to his doctor before starting therapy. Since patients apnea is primarily in supine position, patient advised to avoid sleeping supine and he voiced understanding and agreement with plan. 2. Obesity, unspecified. Currently patients BMI is 37. Obesity increases the risk of apnea, CPAP pressure requirements and overall health risks especially cardiovascular and diabetes. Thus patient is advised to lose weight. * Patient to call with decision on starting therapy. * Attempt to lose weight. * Avoid alcohol consumption near bedtime. * Avoid supine sleep until using CPAP. * The patient is again cautioned about driving until sleepiness completely resolves. * Return will depend upon when therapy is started. I will assess response to therapy and compliance at that time. Counseling Topics: Sleeping position, Weight loss health impact Visit Type: In Office Time Spent with Patient (minutes): 21 Provider Statement: I spent 100% of the Face to Face Visit with the patient with greater than 50% spent counseling the patient and coordination of care.
[2022-11-06 13:58] VITALS: BP 128/82
== END 2022-11-06 13:29 | disposition home or self-care (01) ==
LOC: SC 13:28
PROVIDERS: ATTEND Nurse Practitioner Family
DX: G47.33 Obstructive sleep apnea (adult) (pediatric) (principal); E66.9 Obesity, unspecified; Z68.37 Body mass index [BMI] 37.0-37.9, adult
CPT/HCPCS: 99212; 99213

== ENCOUNTER 2023-05-20 11:33 | Outpatient (CLI) | payer MEDICAID ==
[2023-05-20 18:50] LABS: ALBUMIN 4.3 g/dL (3.2-5.5); ALBUMIN/GLOBULIN RATIO 1.5 (1.0-2.2); ALKALINE PHOSPHATASE 69 IU/L (42-121); ALT ALANINE AMINOTRANSFERASE 9 IU/L (10-60); AST ASPARTATE AMINOTRANSFERASE 13 IU/L (10-42); BILIRUBIN,TOTAL 1.1 mg/dL (0.2-1.0); BUN - BLOOD UREA NITROGEN 17 mg/dL (6-20); CALCIUM 9.6 mg/dL (8.5-10.3); CARBON DIOXIDE - CO2 27 mmol/L (21-32); CHLORIDE 103 mmol/L (101-111); CHOL/HDL RATIO 2.5 (<5.0); CHOLESTEROL 89 mg/dL; CREATININE 1.5 mg/dL (0.6-1.3); GFR - MDRD 58 (>89); GLUCOSE 78 mg/dL (74-104); HDL CHOLESTEROL 36 mg/dL; LDL CHOLESTEROL,CALCULATED 36 mg/dL; POTASSIUM 4.7 mmol/L (3.5-4.5); SODIUM 137 mmol/L (135-145); TOTAL PROTEIN 7.1 g/dL (6.4-8.9); TRIGLYCERIDES 86 mg/dL (48-352); VLDL CHOLESTEROL 17 mg/dL
[2023-05-20 20:07] LABS: ESTIMATED AVERAGE GLUCOSE 134 mg/dL (70-100); HEMOGLOBIN A1c% 6.3 % (4.27-6.07)
== END 2023-05-20 11:34 | disposition home or self-care (01) ==
LOC: LAB.N 11:33
PROVIDERS: ATTEND Internal Medicine
DX: I12.9 Hypertensive chronic kidney disease with stage 1 through stage 4 chronic kidney disease, or unspecified chronic kidney disease (principal); E11.22 Type 2 diabetes mellitus with diabetic chronic kidney disease; N18.31 Chronic kidney disease, stage 3a; E78.2 Mixed hyperlipidemia
CPT/HCPCS: 36415; 80053; 80061; 83036; 83721

== ENCOUNTER 2023-12-06 10:53 | Outpatient (CLI) | payer MEDICAID ==
[2023-12-06 18:00] LABS: BASOPHILS % (AUTO) 0.7 %; EOSINOPHILS # (AUTO) 0.2 10^3/uL (0.0-0.7); EOSINOPHILS % (AUTO) 3.5 %; HCT - HEMATOCRIT 43.6 % (42.0-52.0); HGB - HEMOGLOBIN 12.7 g/dL (14.0-18.0); LYMPHOCYTES # (AUTO) 1.6 10^3/uL (1.5-3.5); LYMPHOCYTES % (AUTO) 28.5 %; MEAN CORPUSCULAR HEMOGLOBIN 22.9 pg (27.0-31.0); MEAN CORPUSCULAR HGB CONC 29.1 g/dL (32.0-36.0); MEAN CORPUSCULAR VOLUME 78.6 fL (80.0-94.0); MEAN PLATELET VOLUME 10.7 fL (7.4-11.4); MONOCYTES # (AUTO) 0.5 10^3/uL (0.0-1.0); MONOCYTES % (AUTO) 8.3 %; NEUTROPHILS # (AUTO) 3.3 10^3/uL (1.5-6.6); NEUTROPHILS % (AUTO) 58.8 %; PLT - PLATELET COUNT 297 10^3/uL (130-450); RED BLOOD COUNT 5.55 10^6/uL (4.70-6.10); RED CELL DISTRIBUTION WIDTH 14.6 % (12.0-15.0); WHITE BLOOD COUNT 5.7 x10^3/uL (4.8-10.8)
[2023-12-06 18:24] LABS: ALBUMIN 4.3 g/dL (3.2-5.5); ALBUMIN/GLOBULIN RATIO 1.4 (1.0-2.2); ALKALINE PHOSPHATASE 77 IU/L (42-121); ALT ALANINE AMINOTRANSFERASE 10 IU/L (10-60); AST ASPARTATE AMINOTRANSFERASE 14 IU/L (10-42); BUN - BLOOD UREA NITROGEN 17 mg/dL (6-20); CALCIUM 9.5 mg/dL (8.5-10.3); CARBON DIOXIDE - CO2 28 mmol/L (21-32); CHLORIDE 102 mmol/L (101-111); CHOL/HDL RATIO 2.5 (<5.0); CHOLESTEROL 95 mg/dL; CREATININE 1.3 mg/dL (0.6-1.3); GFR - MDRD 68 (>89); GLUCOSE 111 mg/dL (74-104); HDL CHOLESTEROL 38 mg/dL; LDL CHOLESTEROL,CALCULATED 41 mg/dL; LDL/HDL RATIO 1.1 (<3.6); POTASSIUM 4.9 mmol/L (3.5-4.5); SODIUM 136 mmol/L (135-145); TOTAL PROTEIN 7.4 g/dL (6.4-8.9); TRIGLYCERIDES 82 mg/dL; VLDL CHOLESTEROL 16 mg/dL
[2023-12-06 18:25] LABS: CREATININE,URINE 96.2 mg/dL
[2023-12-06 18:26] LABS: MICROALBUMIN,URINE < 0.7 mg/dL
[2023-12-06 21:35] LABS: ESTIMATED AVERAGE GLUCOSE 143 mg/dL (70-100); HEMOGLOBIN A1c% 6.6 % (4.27-6.07)
== END 2023-12-06 10:54 | disposition home or self-care (01) ==
LOC: LAB.N 10:53
PROVIDERS: ATTEND Internal Medicine
DX: I12.9 Hypertensive chronic kidney disease with stage 1 through stage 4 chronic kidney disease, or unspecified chronic kidney disease (principal); E11.22 Type 2 diabetes mellitus with diabetic chronic kidney disease; N18.31 Chronic kidney disease, stage 3a; D63.8 Anemia in other chronic diseases classified elsewhere; E78.2 Mixed hyperlipidemia; Z12.5 Encounter for screening for malignant neoplasm of prostate
CPT/HCPCS: 36415; 80053; 80061; 82043; 82570; 83036; 83721; 84153; 85025